=== PATIENT | female | born 1960 | race Caucasian/White ===

== ENCOUNTER 2019-03-21 11:40 | Outpatient (CLI) | payer OTHER, SELFPAY ==
[2019-03-21 13:25] LABS: Calculated LDL 162 mg/dL; Cholesterol 260 mg/dL (50-200); Glucose 97 mg/dL (70-100); HDL Cholesterol 90 mg/dL (40-60); Triglyceride 41 mg/dL (30-150)
[2019-03-22 11:21] LABS: Lyme Ab w Rflx to Lyme Confirm Negative
== END 2019-03-21 12:00 ==
PROVIDERS: PCP Family Medicine; Visit Provider Family Medicine
DX: W57.XXXA Bitten or stung by nonvenomous insect and other nonvenomous arthropods, initial encounter (principal); Z13.220 Encounter for screening for lipoid disorders; Z13.1 Encounter for screening for diabetes mellitus; T14.8XXA Other injury of unspecified body region, initial encounter
CPT/HCPCS: 36415; 80061; 82947; 83721; 86618

== ENCOUNTER 2019-03-21 14:08 | Outpatient (REF) | payer OTHER, SELFPAY ==
--- NOTE | 2019-03-23 11:30 | PAPFT_PTH ---
PATIENT: Lea Sarah LOC: [facility] U#:[id number] AGE/SX: 58/F ROOM: RE03/21/[address]: Kaur Macias MD : [id number] BED: DIS: 03/21/2019 SPEC #: [id number] RECD: 03/26/19 12:54 STATUS: MARIIA REKali #: [id number] BERE: 03/23/19 11:[address]: Kaur Macias DEPT: [facility] Cytology RECD BY: Adrianna Javier Tissues: 1 - CX/ENDOCX FOR PAP SMEARS Procedures: PAP THIN PREP/UVM Screening HPV DNA PROBE Comments: [id number]
== END 2019-03-21 14:28 ==
LOC: LBN 14:08
PROVIDERS: PCP Family Medicine; Visit Provider Family Medicine
DX: Z12.4 Encounter for screening for malignant neoplasm of cervix (principal); Z11.51 Encounter for screening for human papillomavirus (HPV)
CPT/HCPCS: 88142; 87624

== ENCOUNTER 2019-04-11 10:22 | Outpatient (CLI) | payer OTHER, SELFPAY ==
--- NOTE | 2019-04-11 10:52 | DI.MAMMO_ITS ---
SYMPTOMS/DIAGNOSIS: SCREENING MAMMOGRAMS: Mammograms were interpreted according to the usual protocol including computer analysis with CAD system, tomosynthesis and C view imaging. Comparison is made with prior examinations. No suspicious masses or microcalcifications are seen. There is no definite evidence of malignancy. IMPRESSION: Negative mammogram. Routine screening is recommended. Category 1, breast density C. MQSA ASSESSMENT OF FINDINGS: Negative. Category 1. Patient will receive a letter notifying them of these results. Bi-RADS category C. The breasts are heterogeneously dense, which may obscure small masses.
== END 2019-04-11 10:42 ==
PROVIDERS: PCP Family Medicine; Visit Provider Family Medicine
DX: Z12.31 Encounter for screening mammogram for malignant neoplasm of breast (principal)
CPT/HCPCS: 77063; 77067

== ENCOUNTER 2020-04-09 04:08 | Outpatient (CLI) | payer BC, SELFPAY ==
[2020-04-09 12:40] LABS: Calculated LDL 161 mg/dL (<100); Cholesterol 245 mg/dL (<200); HDL Cholesterol 78 mg/dL (40-60); Triglyceride 34 mg/dL (<150)
[2020-04-09 13:11] LABS: Vitamin D 25 Total 38.3 ng/ml (30-100)
== END 2020-04-09 04:28 ==
PROVIDERS: PCP Family Medicine; Visit Provider Family Medicine
DX: E78.5 Hyperlipidemia, unspecified (principal); E55.9 Vitamin D deficiency, unspecified; Z00.00 Encounter for general adult medical examination without abnormal findings
CPT/HCPCS: 36415; 80061; 82306

== ENCOUNTER 2020-04-30 02:07 | Outpatient (CLI) | payer BC, SELFPAY ==
--- NOTE | 2020-04-30 07:15 | DI.MAMMO_ITS ---
EXAM: MG MAMMO SCREENING CLINICAL HISTORY: screening,Z12.39 TECHNIQUE: Bilateral full field digital CC and MLO mammographic images were obtained with 3D tomosyn thesis and utilizing computer aided detection (CAD). COMPARISON: Available for comparison. FINDINGS: Masses/Architectural Distortion: None seen. Microcalcifications: No suspicious pleomorphic-type are seen. Skin Thickening/Nipple Retraction: None. IMPRESSION: 1. No significant interval change with no specific features of malignancy noted. 2. Unless there is more urgent need, screening mammography is recommended, as per [place] [employer] guidelines. BI-RADS Category 1 - Negative Breast Density - Category C - Heterogeneously dense The mammogram demonstrates the patient's breast tissue is dense. Dense breast tissue is very common a nd is not abnormal but dense breast tissue can make it harder to find cancer on a mammogram. Also, de nse breast tissue may increase their breast cancer risk. This information about the result of the [facility] mogram report was provided to the patient to raise their awareness. Use this report when you speak wi th the patient about their risks for breast cancer, which includes their family history. At that time , you may recommend for more screening tests (Ultrasound or MRI) as they might be useful based on the ir risk. A negative radiographic report should not delay biopsy if a dominant or clinically suspicious mass is present. Up to ten percent of cancers are not identified on mammography. A negative report may reinforce clinical impression. Adenosis and dense breasts may obscure an underlying neoplasm. False positive reports average 6 to 10%. Patient will receive a letter notifying them of these results.
== END 2020-04-30 02:27 ==
PROVIDERS: PCP Family Medicine; Visit Provider Family Medicine
DX: Z12.31 Encounter for screening mammogram for malignant neoplasm of breast (principal); R92.2 Inconclusive mammogram
CPT/HCPCS: 77063; 77067

== ENCOUNTER 2021-04-29 03:28 | Outpatient (CLI) | payer OTHER, SELFPAY ==
[2021-04-29 09:27] LABS: Anion Gap 7.1 mmol/L (3-11); BUN 20 mg/dL (7-18); CO2 25.9 mmol/L (21.0-32.0); CREATININE 0.9 mg/dL (0.55-1.02); Calcium 9.6 mg/dL (8.5-10.1); Calculated LDL 175 mg/dL (<100); Chloride 105 mmol/L (98-107); Cholesterol 269 mg/dL (<200); Glucose 87 mg/dL (74-106); HDL Cholesterol 85 mg/dL (40-60); Potassium 4.4 mmol/L (3.5-5.1); Sodium 138 mmol/L (136-145); Triglyceride 46 mg/dL (<150)
== END 2021-04-29 03:29 | disposition home or self-care (01) ==
LOC: LBO 03:29
PROVIDERS: PCP Family Medicine; Visit Provider Family Medicine
DX: E78.5 Hyperlipidemia, unspecified (principal)
CPT/HCPCS: 36415; 80048; 80061

== ENCOUNTER 2021-05-06 01:19 | Outpatient (CLI) | payer OTHER, SELFPAY ==
--- NOTE | 2021-05-06 07:15 | DI.MAMMO_ITS ---
Exam(s) MAMMO SCREENING EXAM: MAMMO SCREENING CLINICAL HISTORY: screening,Z12.39. TECHNIQUE: Bilateral full field digital CC and MLO mammographic images were obtained with 3D tomosyn thesis and utilizing computer aided detection (CAD). COMPARISON: Prior mammograms dating back to 2010, the most recent being April 2020. FINDINGS: The fibroglandular tissue pattern is moderately dense, this decreasing the sensitivity of the mammogr am for finding hidden underlying lesions. There are no new spiculated masses nor malignant appearing microcalcification groups. There is no significant architectural distortion nor skin thickening-retraction. IMPRESSION: Dense bilateral fibroglandular tissue. No obvious radiographic evidence of malignancy. No significa nt change compared to prior studies BI-RADS Category 2 - Benign Findings Breast Density - Category C - Heterogeneously dense Breast density Category C or D implies that the patient has dense breast tissue. Dense breast tissue can make it harder to find cancer on a mammogram. Dense breast tissue is also associated with an incr eased risk of breast cancer. This information about the result of the mammogram report was provided to the patient to raise their awareness. Use this report when you speak with the patient about their risks for breast cancer, which includes their family history. At that time, you may recommend additional screening tests (Ultrasoun d or MRI) as these tests may add significant information. A negative radiographic report should not delay biopsy if a dominant or clinically suspicious mass is present. Up to ten percent of cancers are not identified on mammography. A negative report may reinforce clinical impression. Adenosis and dense breasts may obscure an underlying neoplasm. False positive reports average 6 to 10%. Patient will receive a letter notifying them of these results.
--- NOTE | 2021-05-06 10:59 | DI.US_ITS ---
APPROVED REPORT EXAM: Comprehensive 2D, Doppler, and color-flow Echocardiogram Patient Location: Out-Patient Golf Cart Assembler: Margarita Kearney RDCS (AE) Indications: Systolic Murmur Other Information Study Quality: Good Conclusion Left Ventricle : The left ventricle is normal size. The left ventricular systolic function is normal. The left ventricular ejection fraction is within the normal range. There is normal left ventricular wall thickness. There is normal LV segmental wall motion. The left ventricular diastolic function is normal. LVEF is 59%. Right Ventricle : The right ventricle is normal size. The right ventricular systolic function is norm al. The RVSP is 18.0 mmHg. Atria : The left atrium size is normal. The right atrium size is normal. Mitral Valve : The mitral valve is normal in structure. Mild mitral regurgitation. No evidence of dali ral valve stenosis. Great Vessels : The aortic root is normal in size. The ascending aorta is normal in size. Aortic arch is normal in caliber. IVC is normal in size and collapses >50% with inspiration. Please see remainder of study for further details. Wall motion Left Ventricle The left ventricle is normal size. The left ventricular systolic function is normal. The left ventric ular ejection fraction is within the normal range. There is normal left ventricular wall thickness. T here is normal LV segmental wall motion. The left ventricular diastolic function is normal. There is no ventricular septal defect visualized. LVEF is 59%. Right Ventricle The right ventricle is normal size. The right ventricular systolic function is normal. The RVSP is 18 .0 mmHg. Atria The left atrium size is normal. The right atrium size is normal. The interatrial septum is intact wit h no evidence for an atrial septal defect. Aortic Valve The aortic valve is normal in structure. Aortic valve is trileaflet. There is no aortic valvular sten osis. Trace aortic regurgitation. Mitral Valve The mitral valve is normal in structure. No evidence of mitral valve stenosis. Mild mitral regurgitat ion. Tricuspid Valve The tricuspid valve is normal in structure. There is no tricuspid valve stenosis. Trace tricuspid reg urgitation. Pulmonic Valve The pulmonary valve is normal in structure. There is no pulmonic valvular stenosis. There is no pulmo radha valvular regurgitation. Great Vessels The aortic root is normal in size. The ascending aorta is normal in size. Aortic arch is normal in ca liber. IVC is normal in size and collapses >50% with inspiration. Pericardium There is no pericardial effusion. 2D Dimensions IVSD d PLAX 0.88 cm F: 0.6-1.0 LV Vol A2C d MOD 88.8 mL LVPW d PLAX 0.87 cm F: 0.6 - 1.0 LV Vol A4C d MOD 93.6 mL LVID d PLAX 4.51 cm F: 3.8 - 5.2 LA vol/ BSA A2C s A-L 29.8 mL/m2 LVDs 3.10 cm F: 2.2 - 3.5 LA vol/ BSA A4C s A-L 17.8 mL/m2 Ao Root d 2.42 cm F: 2.7 - 3.3 LA Vol/ BSA Biplane s A-L 25.3 mL/m2 RA Area A4C 10.93 cm2 LA Area A4C s MOD 11.96 cm2 RA Vol/ BSA A4C s A-L 12.9 mL/m2 LA Area A2C s MOD 17.06 cm2 Ao Asc Diam d 2.90 cm F: 2.3 - 3.1 LV EF A4C MOD 58.6 % LV EF Teichholz 57.9 % LV EF A2C MOD 59.0 % LVEF (Kaufman's) 58.73 % F: 54 - 74 LV EF Biplane MOD 58.7 % LV Volume 72.58 mL F: 46 - 106 SV 53.83 mL LV Volume Index 42.44 mL/m2 F: 29 - 61 SV Index 31.42 mL/m2 LV Vol Biplane MOD 91.7 mL FS 30.40 % M-Mode TAPSE 2.52 cm (M/F) >1.7 LV Diastology MV E' medial 0.100 (>0.07 m/s) E/A Ratio 0.9 LV E/e MED 8.00 (<14) MV E Vmax 0.80 (0.4-1.3 m/s) MV E' lateral 0.117 (>0.1 m/s) MV A Vmax 0.90 (0.4-1.3 m/s) LV E/e LAT 6.80 (<14) MV E/A Ratio 0.85 MV E/E' medial 8.01 MV E/E' lateral 6.85 Aortic Valve LVOT Area 3.20 cm2 AoV Area Vmax 3.07 cm2 LVOT Vmax 0.89 m/s AoV Area/ BSA (Vmax) 1.79 cm2/m2 LVOT Mean Obey. 0.61 m/s [place] Mean Obey. 2.91 cm2 LVOT Peak Grad 3.2 mmHg [place] Mean Obey. Index 1.70 cm2/m2 LVOT Mean Grad 1.7 mmHg AR DT 2928 msec LVOT VTI 0.205 m AR PHT 849 msec LVOT Diam s 2.00 cm AoV Vmax 0.93 m/s Velocity Ratio 0.95 AoV Mean Obey. 0.67 m/s AoV Peak Grad 3.5 mmHg LVOT SV 65.69 mL AoV Mean Grad 2.0 mmHg AoV VTI 0.231 m AoV Area VTI 2.84 cm2 AoV Area/ BSA (VTI) 1.66 cm/m2 Mitral Valve MV DT 272 (160-240 msec) MV PHT 79 msec MV Area PHT 2.79 cm2 MV VTI 0.371 m MV Area VTI 1.77 (4.0-6.0 cm2) Pulmonary Valve PV Vmax 0.73 (0.5-1.5 m/s) RVOT Peak Gr. 1.44 mmHg PV Peak Grad 2.2 mmHg RVOT Mean Gr. 0.75 mmHg PV Mean Grad 1.3 mmHg RVOT VTI 0.130 m PV VTI 0.189 m RVOT Vmax 0.60 m/s Tricuspid Valve TR Peak Grad 14.9 mmHg TR Vmax 1.94 m/s RA Pressure 3.00 mmHg RVSP (TR) 18.0 mmHg
== END 2021-05-06 01:39 ==
PROVIDERS: PCP Family Medicine; Visit Provider Family Medicine
DX: Z12.31 Encounter for screening mammogram for malignant neoplasm of breast (principal); R01.1 Cardiac murmur, unspecified; I34.0 Nonrheumatic mitral (valve) insufficiency; R92.2 Inconclusive mammogram
CPT/HCPCS: 77063; 77067; 93306

== ENCOUNTER → 2022-05-25 01:29 | Outpatient (CLI) | payer OTHER, SELFPAY ==
--- NOTE | 2022-05-25 07:00 | DI.MAMMO_ITS ---
Exam(s) MAMMO SCREENING EXAM: MAMMO SCREENING CLINICAL HISTORY: screening,Z12.39 TECHNIQUE: Bilateral full field digital CC and MLO mammographic images were obtained with 3D tomosyn thesis and utilizing computer aided detection (CAD). COMPARISON: Available for comparison. FINDINGS: Masses/Architectural Distortion: None seen. Microcalcifications: No suspicious pleomorphic-type are seen. Skin Thickening/Nipple Retraction: None. IMPRESSION: 1. No significant interval change with no specific features of malignancy noted. 2. Unless there is more urgent need, screening mammography is recommended, as per [place] [employer] guidelines. BI-RADS Category 1 - Negative Breast Density - Category C - Heterogeneously dense Breast density category C or D implies that the patient has dense breast tissue. Dense breast tissue is very common and is not abnormal but dense breast tissue can make it harder to find cancer on a ma mmogram. Also, dense breast tissue may increase their breast cancer risk. This information about the result of the mammogram report was provided to the patient to raise their awareness. Use this report when you speak with the patient about their risks for breast cancer, which includes their family hist ory. At that time, you may recommend for more screening tests (Ultrasound or MRI) as they might be us eful based on their risk. A negative radiographic report should not delay biopsy if a dominant or clinically suspicious mass is present. Up to ten percent of cancers are not identified on mammography. A negative report may reinforce clinical impression. Adenosis and dense breasts may obscure an underlying neoplasm. False positive reports average 6 to 10%. Patient will receive a letter notifying them of these results.
== END ==
PROVIDERS: PCP Family Medicine; Visit Provider Family Medicine
DX: Z12.31 Encounter for screening mammogram for malignant neoplasm of breast (principal); R92.8 Other abnormal and inconclusive findings on diagnostic imaging of breast
CPT/HCPCS: 77063; 77067

== ENCOUNTER → 2022-07-09 00:21 | Outpatient (CLI) | payer OTHER, SELFPAY ==
--- NOTE | 2022-07-09 07:00 | DI.DEXA_ITS ---
Exam(s) XR DEXA BONE DENSITY W/WO LOGAN EXAM: XR DEXA BONE DENSITY W/WO LOGAN CLINICAL HISTORY: screening for osteoporosis in postmenopausal woman,z78.0 TECHNIQUE: [employer] C densitometer analysis of left hip, lumbar spine and left forearm. COMPARISON: No exams were available for comparison FINDINGS: Lateral view of the thoracic and lumbar spine shows no evidence of compression fractures. Bone mineral density measurements of the lumbar spine correspond to a total T-score of -0.2, in the normal range. Bone mineral density measurements of the left hip correspond to a total T-score of -0.2, in the norm al range.. The femoral neck T-score is -0.2. The left forearm bone mineral density measurements correspond to a T-score of the distal 3rd of -0.4 . IMPRESSION: Normal bone mineral density.
== END ==
PROVIDERS: PCP Family Medicine; Visit Provider Family Medicine
DX: Z13.820 Encounter for screening for osteoporosis (principal); Z78.0 Asymptomatic menopausal state
CPT/HCPCS: 77080

== ENCOUNTER 2023-05-12 11:01 | Outpatient (REF) | payer OTHER, SELFPAY ==
[2023-05-12 15:49] LABS: HCT 41.6 % (36.0-46.0); HGB 13.6 g/dL (11.2-15.7); MCH 28.4 pg (27.0-33.0); MCHC 32.7 % (32.0-36.0); MCV 87 fL (80-95); MPV 10.8 fL (8.0-11.0); Platelet Count 270 10^3/uL (130-400); RBC 4.79 10^6/uL (3.93-5.22); RDW 12.3 % (11.7-14.6); RDW-SD 39.5 fL; WBC 3.89 10^3/uL (4.4-10.8)
[2023-05-12 16:51] LABS: ALT 24 U/L (14-59); AST 14 U/L (15-37); Albumin 4.1 g/dL (3.4-5.0); Alkaline Phosphatase 69 U/L (46-116); Anion Gap 6.6 mmol/L (3-11); BUN 16 mg/dL (7-18); Bilirubin, Total 0.4 mg/dL (0.2-1.0); CO2 28.4 mmol/L (21.0-32.0); CREATININE 0.8 mg/dL (0.55-1.02); Calcium 9.1 mg/dL (8.5-10.1); Calculated LDL 216 mg/dL (<100); Chloride 103 mmol/L (98-107); Cholesterol 307 mg/dL (<200); Estimated GFR 82.74 (mL/min/1.73m2); Glucose 108 mg/dL (74-106); HDL Cholesterol 85 mg/dL (40-60); Potassium 4.3 mmol/L (3.5-5.1); Sodium 138 mmol/L (136-145); TSH 2.63 uIU/mL (0.36-3.74); Total Protein 7.8 g/dL (6.4-8.2); Triglyceride 33 mg/dL (<150)
== END 2023-05-12 11:02 | disposition home or self-care (01) ==
LOC: NCHCN 11:01
PROVIDERS: Visit Provider Family Medicine
DX: Z00.00 Encounter for general adult medical examination without abnormal findings (principal); Z13.29 Encounter for screening for other suspected endocrine disorder; Z13.0 Encounter for screening for diseases of the blood and blood-forming organs and certain disorders involving the immune mechanism; E78.5 Hyperlipidemia, unspecified
CPT/HCPCS: 80053; 80061; 85027; 84443

== ENCOUNTER → 2023-05-30 01:13 | Outpatient (CLI) | payer OTHER, SELFPAY ==
--- NOTE | 2023-05-30 | DI.MAMMO_ITS ---
Exam(s) MAMMO SCREENING EXAM: MAMMO SCREENING CLINICAL HISTORY: [facility],Z00.00, SCREENING, Z12.31. TECHNIQUE: Bilateral full field digital CC and MLO mammographic images were obtained with 3D tomosyn thesis and utilizing computer aided detection (CAD). COMPARISON: Prior mammograms were reviewed. FINDINGS: There has been no significant change in the appearance and distribution of the fibroglandular tissue. There are no CAD designations There are no new spiculated masses nor malignant appearing microcalcification groups. There is no significant architectural distortion nor skin thickening-retraction. IMPRESSION: No radiographic evidence of malignancy. BI-RADS Category 1 - Negative Breast Density - Category C - Heterogeneously dense Breast density Category C or D implies that the patient has dense breast tissue. Dense breast tissue can make it harder to find cancer on a mammogram. Dense breast tissue is also associated with an incr eased risk of breast cancer. This information about the result of the mammogram report was provided to the patient to raise their awareness. Use this report when you speak with the patient about their risks for breast cancer, which includes their family history. At that time, you may recommend additional screening tests (Ultrasoun d or MRI) as these tests may add significant information. A negative radiographic report should not delay biopsy if a dominant or clinically suspicious mass is present. Up to ten percent of cancers are not identified on mammography. A negative report may reinforce clinical impression. Adenosis and dense breasts may obscure an underlying neoplasm. False positive reports average 6 to 10%. Patient will receive a letter notifying them of these results.
== END ==
PROVIDERS: PCP Family Medicine; Visit Provider Family Medicine
DX: Z12.31 Encounter for screening mammogram for malignant neoplasm of breast (principal)
CPT/HCPCS: 77063; 77067

== ENCOUNTER → 2023-06-13 01:37 | Outpatient (CLI) | payer OTHER, SELFPAY ==
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
--- NOTE | 2023-06-13 09:43 | DI.RAD_ITS ---
Exam(s) RF MODIFIED SPEECH BA SWALLOW TECHNIQUE: Modified barium swallow was performed in conjunction with speech pathology. CONTRAST MATERIAL: Oral barium Oral water soluble contrast was administered. COMPARISON: No exams were available for comparison FINDINGS: Fluoroscopy provided during swallowing mechanism study performed by the speech therapist. This is a patient had recent anterior fusion plate placed at C6-7. See procedure report for details. There was no aspiration evident on this study. IMPRESSION: No evidence of aspiration or penetration. RADIATION DOSE DELIVERED: trina Bazzi=18.0 mGy
[2023-06-13] MEDS: Barium Sulfate Oral Paste 40% W/V 230 ML TUBE 13 ML PO (10:26)
[2023-06-13] MEDS: Barium Sulfate 40% W/V 240 ML BTL 70 ML PO (10:27)
[2023-06-13] MEDS: Barium Sulfate 700 MG TAB PO (10:28)
[2023-06-13] MEDS: Barium Sulfate 81% w/w for Oral Suspension 148 GM BTL 90 GM PO (10:31)
== END ==
PROVIDERS: PCP Family Medicine; Visit Provider Orthopaedic Surgery Orthopaedic Surgery of the Spine
DX: M54.2 Cervicalgia (principal); R13.10 Dysphagia, unspecified
CPT/HCPCS: 92611; 74221

== ENCOUNTER 2023-10-25 11:09 | Outpatient (REF) | payer OTHER, SELFPAY ==
--- NOTE | 2023-10-25 11:10 | SKI_PTH ---
PATIENT: Lea Sarah [id number] AGE/SX: 63/F ROOM: RE10/25/[address]: TRACEY: 1960 BED: DIS: 10/25/2023 SPEC #: [id number] RECD: 10/26/23 12:51 STATUS: MARIIA ASHLEY #: [id number] BERE: 10/25/23 11:[address]: Libertad Gasca DEPT: Surgical Specimen RECD BY: Adrianna Javier Tissues: 1 - SKIN BIOPSY(SHAVE/PUNCH) 2 - SKIN BIOPSY(SHAVE/PUNCH) 3 - SKIN BIOPSY(SHAVE/PUNCH) 4 - SKIN BIOPSY(SHAVE/PUNCH) Procedures: GROSS AND MICRO LEVEL 3 SKIN LEVEL 4 Comments: [id number]
--- OUTSIDE RECORDS SUMMARY | 2023-10-26 11:13 | XMS_ITS | Continuity of Care Document ---
Author Name Unknown Address [address] [place] [address] Phone Organization [facility] Address [address] [place] [address] Phone Care Team Providers Care Cocktail Lounge Manager Name Role Phone Out of Town, Provider Primary Care Provider UnaJoel Esteves Attending Provider [phone] Allergies, Adverse Reactions, Alerts No allergy information available. Medications No medication information available. Problems No problem information available. Relevant Diagnostic Tests and/or Laboratory Data Laboratory Results Test Date/Time Result Interpretation Reference Range Result Comment Performing Site Coronavirus 2019 PCR Interp March 11, 2020 7:15am Negative Negative Negative results do not preclude 2019-nCoV infection andshould not be used as the sole basis for treatment or otherpatient management decisions. Negative results must becombined with clinical observations, patient history, andepidemiolo gical information.T his test was developed and its performance characteristi csdetermined by [facility]. It has not been cleared or approved bythe US Food and Drug Administratio n. FDA does not requirethis test to go through premarket FDA review. This test isused for clinical purposes. It should not be regarded asinvestigati onal or for research. This laboratory iscertified under the Clinical Laboratory ImprovementAm endments (CLIA) as qualified to perform high complexitycli nical laboratory testing.This test is based on the CDC COVID-19 Emergency UseAuthorizat ion (EUA) assay, with minor modification asdefined by the FDAPerformed on the [employer] 7500 Fast. [facility] Coronavirus (COVID-19)( PCR) April 08, 2020 8:00am Negative Negative 2019-novel Coronavirus (2019-nCoV) not detected by theqRT-PCR assay. Consider testing for other respiratoryvi ruses or re-collecting for 2019-nCoV testing. Note:Optimum timing for peak viral levels during infectionscau sed by 2019-nCoV have not been determined. Collection ofmultiple specimens from the same patient may be necessaryto detect the virus.Limitat ionsPositive results are indicative of active infection withSARS-CoV- 2 but do not rule out bacterial infection orco-infectio n with other viruses. The agent detected may notbe the definite cause of disease. In addition, detection ofviral RNA may not indicate the presence of infectious virusor that SARS-CoV-2 is the causative agent for clinicalsympt oms.Negative results do not preclude SARS-CoV-2 infection andshould not be used as the sole basis for patient managementdec isions. Negative results must be combined with clinicalobser vations, patient history, and epidemiologic alinformation . False negative results may also occur ifamplificati on inhibitors are present in the specimen or ifinadequate numbers of organisms are present in thespecimen. Optimum specimen types and timing for peak virallevels during infections caused by SARS-CoV-2 have not beenfully determined. Collection of multiple specimens (typesand time points) from the same patient may be necessary todetect the virus.The test was validated for use with upper respiratorysp ecimens obtained via nasopharyngea l or oropharyngeal swabs in VTM, UTM, M4, M5, M6, saline, and MTM media. Theperformanc e of this test has not been established for otherspecimen s. Specimens collected using other FDA recommendedSp ecimen Collection Materials listed in the FDA COVID-19Diagn [employer] communication (December 13, 2019) areprocessed with the caveat that they were not all validatedfor use with this test and the result must be interpretedin this context. Furthermore, a false negative results mayoccur if a specimen is improperly collected, transported orhandled.If the virus mutates in the RT-PCR target region,SARS-C oV-2 may not be detected or may be detected lesspredictab ly.Inhibitors or other types of interference may produce afalse negative result. An interference study evaluating theeffect of common cold medications was not performed.Thi s test is not FDA-cleared but its performancech aracteristics were established by our CLIA-keron evangelista CAP-yahaira hendrix, high complexity laboratory in accordancewit CLIA regulations, College of [employer]( CAP) guidelines (Dec 06, 2019), and FDA guidance (2019).This test is only for use under the Food and DrugAdministr [facility] Emergency Use Authorization . [facility] Coronavirus (COVID-19)( PCR) July 15, 2020 8:00am Negative [facility] Coronavirus (COVID-19)( PCR) June 12, 2020 8:00am Negative Negative 2019-novel Coronavirus (2019-nCoV) not detected by theqRT-PCR assay. Consider testing for other respiratoryvi ruses or re-collecting for 2019-nCoV testing. Note:Optimum timing for peak viral levels during infectionscau sed by 2019-nCoV have not been determined. Collection ofmultiple specimens from the same patient may be necessaryto detect the virus.Limitat ionsPositive results are indicative of active infection withSARS-CoV- 2 but do not rule out bacterial infection orco-infectio n with other viruses. The agent detected may notbe the definite cause of disease. In addition, detection ofviral RNA may not indicate the presence of infectious virusor that SARS-CoV-2 is the causative agent for clinicalsympt oms.Negative results do not preclude SARS-CoV-2 infection andshould not be used as the sole basis for patient managementdec isions. Negative results must be combined with clinicalobser vations, patient history, and epidemiologic alinformation . False negative results may also occur ifamplificati on inhibitors are present in the specimen or ifinadequate numbers of organisms are present in thespecimen. Optimum specimen types and timing for peak virallevels during infections caused by SARS-CoV-2 have not beenfully determined. Collection of multiple specimens (typesand time points) from the same patient may be necessary todetect the virus.The test was validated for use with upper respiratorysp ecimens obtained via nasopharyngea l or oropharyngeal swabs in VTM, UTM, M4, M5, M6, saline, and MTM media. Theperformanc e of this test has not been established for otherspecimen s. Specimens collected using other FDA recommendedSp ecimen Collection Materials listed in the FDA COVID-19Diagn [employer] communication (December 13, 2019) areprocessed with the caveat that they were not all validatedfor use with this test and the result must be interpretedin this context. Furthermore, a false negative results mayoccur if a specimen is improperly collected, transported orhandled.If the virus mutates in the RT-PCR target region,SARS-C oV-2 may not be detected or may be detected lesspredictab ly.Inhibitors or other types of interference may produce afalse negative result. An interference study evaluating theeffect of common cold medications was not performed.Thi s test is not FDA-cleared but its performancech aracteristics were established by our CLIA-certifie jean carlos,CAP-accredi simeon, high complexity laboratory in accordancewit h CLIA regulations, College of [employer]( CAP) guidelines (Dec 06, 2019), and FDA guidance (2019).This test is only for use under the Food and DrugAdministr [facility] Emergency Use Authorization . [facility] Coronavirus (COVID-19)( PCR) May 13, 2020 8:00am Negative Negative 2019-novel Coronavirus (2019-nCoV) not detected by theqRT-PCR assay. Consider testing for other respiratoryvi ruses or re-collecting for 2019-nCoV testing. Note:Optimum timing for peak viral levels during infectionscau sed by 2019-nCoV have not been determined. Collection ofmultiple specimens from the same patient may be necessaryto detect the virus.Limitat ionsPositive results are indicative of active infection withSARS-CoV- 2 but do not rule out bacterial infection orco-infectio n with other viruses. The agent detected may notbe the definite cause of disease. In addition, detection ofviral RNA may not indicate the presence of infectious virusor that SARS-CoV-2 is the causative agent for clinicalsympt oms.Negative results do not preclude SARS-CoV-2 infection andshould not be used as the sole basis for patient managementdec isions. Negative results must be combined with clinicalobser vations, patient history, and epidemiologic alinformation . False negative results may also occur ifamplificati on inhibitors are present in the specimen or ifinadequate numbers of organisms are present in thespecimen. Optimum specimen types and timing for peak virallevels during infections caused by SARS-CoV-2 have not beenfully determined. Collection of multiple specimens (typesand time points) from the same patient may be necessary todetect the virus.The test was validated for use with upper respiratorysp ecimens obtained via nasopharyngea l or oropharyngeal swabs in VTM, UTM, M4, M5, M6, saline, and MTM media. Theperformanc e of this test has not been established for otherspecimen s. Specimens collected using other FDA recommendedSp ecimen Collection Materials listed in the FDA COVID-19Diagn [employer] communication (December 13, 2019) areprocessed with the caveat that they were not all validatedfor use with this test and the result must be interpretedin this context. Furthermore, a false negative results mayoccur if a specimen is improperly collected, transported orhandled.If the virus mutates in the RT-PCR target region,SARS-C oV-2 may not be detected or may be detected lesspredictab ly.Inhibitors or other types of interference may produce afalse negative result. An interference study evaluating theeffect of common cold medications was not performed.Thi s test is not FDA-cleared but its performancech aracteristics were established by our CLIA-certifie d,CAP-accredi [facility] high complexity laboratory in accordancewit h CLIA regulations, College of [employer] Pathologists( CAP) guidelines (Dec 06, 2019), and FDA guidance (2019).This test is only for use under the Food and DrugAdministr [facility] Emergency Use Authorization . [facility] Reference Lab Test Performing Site April 08, 2020 8:00am [facility] [place] Please indicate the Triage [id number] Source: NPTest performed or referred by[address] LABORATORIES Reference Lab Test Performing Site March 11, 2020 7:15am [address] lab Is Patient Admitted or Awaiting Admission?:NO COVID Source: NPTest performed or referred by[address] [employer] Reference Lab Test Performing Site July 15, 2020 8:00am [facility] Reference Lab Test Performing Site June 12, 2020 8:00am [facility] COVID Source: NPPlease indicate the Triage TierTier 2Test performed or referred by[id number] [place] [address] Reference Lab Test Performing Site May 13, 2020 8:00am [facility] COVID Source: NPPlease indicate the Triage [id number] performed or referred by[address] SARS Source August 02, 2020 11:00am Nasopharynx [facility] Patient Race (MISC) August 02, 2020 11:00am Unknown [facility] Patient Ethnicity ([facility] panel) August 02, 2020 11:00am Unknown [facility] SARS Virus RNA (PCR) August 02, 2020 11:00am Undetected Undetected SARS-CoV-2 RNA absent. This result does not rule outCOVID-19 in the patient, as the sensitivity of the testdepends on the timing of the specimen collection and thequality of the specimen. Result should be correlated withpatient's history and clinical presentation. [facility] SARS-CoV-2 Comment August 02, 2020 11:00am See comment PKELM- This test uses the Snootlab New CoronavirusNu cleic Acid Detection Kit (Sn[employer], Inc.), and isperformed on the Estech instrument and [employer] 7500 Fast Real-Time PCR System. It has receivedEmerg ency Use Authorization (EUA) by the U.S. Food and DrugAdministr ation, and is modified from the gasket maker' sinstructions with a bridging study. Performancech aracteristics were verified by [facility] in a mannerconsist ent with CLIA requirements. Fact sheets for this Emergency Use Authorization (EUA) canbe found at the following links:https:/ /www.fda.gov/ media/958100/ download for HealthcarePro vidershttps:/ /www.fda.gov/ media/834945/ download for PatientsTest Performed by:[address] [id number] Director: Marco Enciso M.D. Ph.D.; IA# [id number] [facility] Advance Directives Advance Directive Response Recorded Date/ Time Does patient have an Advanced Directive? No March 07, 2020 3:24pm Do we have a copy on file here at [facility]? No March 07, 2020 3:24pm Pt has a Living Will? No March 07, 2020 3:24pm Do we have a copy on file here at [facility]? No March 07, 2020 3:24pm Pt has a Power of Fire Prevention Research Engineer? No March 07, 2020 3:24pm Do we have a copy on file here at [facility]? No March 07, 2020 3:24pm Chief Complaint and Reason for Visit Chief Complaint COVID SWAB COVID SWAB COVID SWAB COVID SWAB COVID SWAB CURBSIDE CURBSIDE Encounters Encounter Location(s) Arrival/Admit Date Discharge/Depart Date Provider(s) Departed [facility] March 11, 2020 7:10am March 11, 2020 7:11am [facility], 2020 7:15am April 08, 2020 7:20am [facility] May 13, 2020 7:50am May 13, 2020 7:51am Joel Cantu DMD [facility] June 12, 2020 6:53am June 12, 2020 6:54am [facility] July 15, 2020 6:49am July 15, 2020 6:50am [facility], 2020 8:33am August 02, 2020 8:34am [facility], 2020 10:43am August 26, 2020 10:44am Joel Cantu DMD Assessments No Assessments Information Available Functional Status No Functional Status information available Goals Goals may be documented in an alternate section. Mental Status No Mental Status Information Available Medical Equipment No Medical Equipment Information available Insurance Providers Guarantor KINGSLEY MEL Address [address] [address] Contact Info. Home Phone: Payer Policy Id Coverage Id Subscriber's Name Subscriber Id Effective Date Expiration Date [employer] [facility] [id number] AVERY MARIANO [id number] [employer] [id number] TESFAYE LEAL [id number] SELF PAY Self N/A Social History Assigned Sex Female
--- OUTSIDE RECORDS SUMMARY | 2023-10-26 11:13 | XMS_ITS | Continuity of Care Document ---
Author Name Unknown Address [address] [place] [address] [facility] Address [address] [place] [address] Phone Care Team Providers Care Medical Professionals Name Role Phone Out of Town, Provider Primary Care Provider UnaJoel Esetves Attending Provider [phone] Allergies, Adverse Reactions, Alerts No allergy information available. Medications No medication information available. Problems No problem information available. Relevant Diagnostic Tests and/or Laboratory Data Laboratory Results Test Date/Time Result Interpretation Reference Range Result Comment Performing Site Coronavirus 2019 PCR Interp March 11, 2020 8:15am Negative Negative Negative results do not preclude 2019-nCoV infection andshould not be used as the sole basis for treatment or otherpatient management decisions. Negative results must becombined with clinical observations, patient history, andepidemiologi tracy information.Thi s test was developed and its performance characteristics determined by [facility]. It has not been cleared or approved bythe US Food and Drug Administration. FDA does not requirethis test to go through premarket FDA review. This test isused for clinical purposes. It should not be regarded asinvestigation al or for research. This laboratory iscertified under the Clinical Laboratory ImprovementAmen dments (CLIA) as qualified to perform high complexityclini tracy laboratory testing.This test is based on the CDC COVID-19 Emergency UseAuthorizatio n (EUA) assay, with minor modification asdefined by the FDAPerformed on the [employer] 7500 Fast. [facility] Coronavirus (COVID-19)(P CR) May 13, 2020 9:00am Negative Negative 2019-novel Coronavirus (2019-nCoV) not detected by theqRT-PCR assay. Consider testing for other respiratoryviru ses or re-collecting for 2019-nCoV testing. Note:Optimum timing for peak viral levels during infectionscause d by 2019-nCoV have not been determined. Collection ofmultiple specimens from the same patient may be necessaryto detect the virus.Limitatio nsPositive results are indicative of active infection pvmbIESN-QqD-3 but do not rule out bacterial infection orco-infection with other viruses. The agent detected may notbe the definite cause of disease. In addition, detection ofviral RNA may not indicate the presence of infectious virusor that SARS-CoV-2 is the causative agent for clinicalsymptom s.Negative results do not preclude SARS-CoV-2 infection andshould not be used as the sole basis for patient managementdecis ions. Negative results must be combined with clinicalobserva tions, patient history, and epidemiological information. False negative results may also occur ifamplification inhibitors are present in the specimen or ifinadequate numbers of organisms are present in thespecimen. Optimum specimen types and timing for peak virallevels during infections caused by SARS-CoV-2 have not beenfully determined. Collection of multiple specimens (typesand time points) from the same patient may be necessary todetect the virus.The test was validated for use with upper respiratoryspec imens obtained via nasopharyngeal or oropharyngealsw abs in VTM, UTM, M4, M5, M6, saline, and MTM media. Theperformance of this test has not been established for otherspecimens. Specimens collected using other FDA recommendedSpec imen Collection Materials listed in the FDA COVID-19Diagnos [employer] Technologies communication (December 13, 2019) areprocessed with the caveat that they were not all validatedfor use with this test and the result must be interpretedin this context. Furthermore, a false negative results mayoccur if a specimen is improperly collected, transported orhandled.If the virus mutates in the RT-PCR target region,SARS-CoV -2 may not be detected or may be detected lesspredictably .Inhibitors or other types of interference may produce afalse negative result. An interference study evaluating theeffect of common cold medications was not performed.This test is not FDA-cleared but its performancechar acteristics were established by our CLIA-certified, CAP-accredited, high complexity laboratory in accordancewith CLIA regulations, College of [place] Path[employer](CA P) guidelines (Dec 06, 2019), and FDA guidance (2019).This test is only for use under the Food and DrugAdministrat ion's Emergency Use Authorization. [facility] Reference Lab Test Performing Site March 11, 2020 8:15am [facility] lab Is Patient Admitted or Awaiting Admission?:NOCO VID Source: NPTest performed or referred by[address] Reference Lab Test Performing Site May 13, 2020 9:00am [facility] COVID Source: NPPlease indicate the Triage [id number] performed or referred by[address] Advance Directives Advance Directive Response Recorded Date/ Time Does patient have an Advanced Directive? No March 07, 2020 4:24pm Do we have a copy on file here at [facility]? No March 07, 2020 4:24pm Pt has a Living Will? No March 07, 2020 4:24pm Do we have a copy on file here at [facility]? No March 07, 2020 4:24pm Pt has a Power of Color Specialist? No March 07, 2020 4:24pm Do we have a copy on file here at [facility]? No March 07, 2020 4:24pm Chief Complaint and Reason for Visit Chief Complaint COVID SWAB COVID SWAB COVID SWAB Encounters Encounter Location(s) Arrival/Admit Date Discharge/Depart Date Provider(s) Departed [facility] March 11, 2020 8:10am March 11, 2020 8:11am Joel Cantu DMD Departed [facility] May 13, 2020 8:50am May 13, 2020 8:51am Joel Cantu DMD Departed [facility] June 12, 2020 7:53am June 12, 2020 7:54am Joel Cantu DMD Assessments No Assessments Information Available Functional Status No Functional Status information available Goals Goals may be documented in an alternate section. Mental Status No Mental Status Information Available Medical Equipment No Medical Equipment Information available Insurance Providers Guarantor KINGSLEY LEAL Address [address] [facility] [address] Contact Info. Home Phone: Payer Policy Id Coverage Id Subscriber's Name Subscriber Id Effective Date Expiration Date [facility] [id number] AVERY MARIANO [id number] SELF PAY Self N/A Social History Assigned Sex Female
--- OUTSIDE RECORDS SUMMARY | 2023-10-26 11:13 | XMS_ITS | Continuity of Care Document ---
Author Name [facility] Address [address] [place] [address] Organization [facility] Address [address] [place] [address] Care Team Providers Care Correspondence Renew Clerk Name Role Phone Out of Town, Provider Primary Care Physician Joel Lott Attending Physician Allergies, Adverse Reactions, Alerts No allergy information available. Medications No medication information available. Problem List No problem information available. Procedures No known history of procedures. Relevant Diagnostic Tests and/or Laboratory Data Laboratory Results Test Date/Time Result Interp. Ref. Range Result Co mment Coronavirus 2019 PCR Interp March 11, 2020 8:15am Negative Negative results do not preclude 2019-nCoV infection and should not be used as the sole basis for treatment or other patient management decisions. Negative results must be combined with clinical observations, patient history, and epidemiological information. This test was developed and its performance characteristics determined by [facility]. It has not been cleared or approved by the US Food and Drug Administration. FDA does not require this test to go through premarket FDA review. This test is used for clinical purposes. It should not be regarded as investigational or for research. This laboratory is certified under the Clinical Laboratory Improvement Amendments (CLIA) as qualified to perform high complexity clinical laboratory testing. This test is based on the CDC COVID-19 Emergency Use Authorization (EUA) assay, with minor modification as defined by the FDA Performed on the Applied Socialbomb Fast. Reference Lab Test Performing Site March 11, 2020 8:15am [facility] Is Patient Admitted or Awaiting Admission?:NO COVID Source: HVAC OPERATIONS TECHNICIAN Test performed or referred by The [address] [address] Advance Directives Advance Directive Response Recorded Date/ Time Do we have a copy on file here at [facility]? No March 07, 2020 4:24pm Does patient have an Advanced Directive? No March 07, 2020 4:24pm Pt has a Living Will? No March 07 4:24pm Pt has a Power of Supervisor Pumping? No March 07, 2020 4:24pm Chief Complaint and Reason for Visit Encounter Admit Date Chief Complaint Reason for V isit Departed Clinical March 11, 2020 8:10am [facility] SWAB Hospital Discharge Instructions No known hospital discharge instructions. Encounters Encounter Facility Location Admit/Visit Date Discharge/Departure Date Attending Provider Departed Clinical [facility] Laboratory March 11, 2020 8:10am March 11, 2020 8:11am Joel Cantu Functional Status No known functional status. Immunizations No known immunizations. Payers Payer Name Policy Type Covered Democrat Covered Democrat Id Relationship Subscriber Subscriber Id [facility] OUT OF STATE Commercial AVERY QUINTANA [id number] Spouse AVERY QUINTANA [id number] SELF PAY Personal Plan of Care No Known Plan of Care Information Social History No known social history. Vital Signs No known vital signs results.
--- OUTSIDE RECORDS SUMMARY | 2023-10-26 11:13 | XMS_ITS | Continuity of Care Document ---
Author Name [facility] Address [address] [place] [address] Organization [facility] Address [address] [place] [address] Care Team Providers Care Mortar Worker Name Role Phone Out of Town, Provider [...] developed and its performance characteristics determined by [facility]. It has not been cleared [...] by the FDA Performed on the Applied Zelgor Fast. Reference Lab Test Performing Site March 11, 2020 8:15am [facility] lab Is Patient Admitted or Awaiting Admission?:NO COVID Source: MARKETING AND COMMUNICATIONS OFFICER Test performed or referred by The [address] [address] Advance Directives Advance Directive Response Recorded Date/ Time Do we have a copy on file here at [facility]? No March 07, 2020 4:24pm Does patient have an Advanced Directive? No March 07, 2020 4:24pm Pt has a Living Will? No March 07 4:24pm Pt has a Power of International Nurse? No March 07, 2020 4:24pm Chief Complaint and Reason for Visit Encounter Admit Date Chief Complaint Reason for V isit Departed Clinical May 13, 2020 8:50am COVID SWAB Hospital Discharge Instructions No known hospital discharge instructions. Encounters Encounter Facility Location Admit/Visit Date Discharge/Departure Date Attending Provider Departed Clinical [facility] Laboratory May 13, 2020 8:50am May 13, 2020 8:51am Joel Cantu Departed [facility] March 11, 2020 8:10am March 11, 2020 8:11am Joel Cantu Functional Status No known functional status. Immunizations No known immunizations. Payers Payer Name Policy Type Covered Democrat Covered Democrat Id Relationship Subscriber Subscriber Id [facility] OUT OF STATE Commercial AVERY QUINTANA [id number] Spouse AVERY QUINTANA [id number] SELF PAY Personal Plan of Care No Known Plan of Care Information Social History No known social history. Vital Signs No known vital signs results.
--- OUTSIDE RECORDS SUMMARY | 2023-10-26 11:13 | XMS_ITS | Continuity of Care Document ---
Author Name Unknown Address [address] [place] [address] Phone Organization [facility] Address [address] [place] [address] Phone Care Team Providers Care Non Emergency Services Ambulance Driver Name Role Phone Out of Town, Provider Primary Care Provider Unav Joel Pritchard Attending Provider Allergies, Adverse Reactions, Alerts No known allergies. Medications Medication Status Dose Units Route Directions Qty Days St art Date End Date Instructions COVID-19 vacc,mRNA(P fizer)(PF) 30 mcg/0.3 mL IM susp (EUA) Discontin ued 0.3 ML IM ONCE 0.3 September 10, 2020 6:55am [facility] 2019 7:27am COVID-19 vacc,mRNA(P fizer)(PF) 30 mcg/0.3 mL IM susp (EUA) Discontin ued 0.3 ML IM ONCE 0.3 October 01, 2020 7:00am October 01, 2020 7:04am Problems No problem information available. Relevant Diagnostic [...] developed and its performance characteristi csdetermined by [facility]. It has not been cleared or [...] asdefined by the FDAPerformed on the Applied MyLife 7500 Fast. [facility] Coronavirus 2019 PCR Interp September 23, 2020 9:00am Negative Negative This test has not been FDA cleared or approved. This testhas been authorized by FDA under an EUA for use byauthorized laboratories. This test has been authorized onlyfor detection of nucleic acid from 2019-nCoV, not for anyother viruses or pathogens. This test is only authorizedfor the duration of the declaration that circumstances exist justifying the authorization of emergency use of invitro diagnostic tests for detection and/or diagnosis [id number] under section 564(b)(1) of Act, 21 U.S.C ?360bbb-3(b) (1), unless the authorization is terminated orrevoked sooner.Negati ve results do not preclude 2019-nCoV infection andshould not be used as the sole basis for treatment or otherpatient management decisions. Negative results must becombined with clinical observations, patient history, andepidemiolo gical information.T esting was performed using the prudencio SARS-CoV-2 assay([employer] on the Prudencio 6800 System [facility] Coronavirus 2019 PCR Interp August 26, 2020 8:15am Negative Negative Negative results do not preclude 2019-nCoV infection andshould not be used as the sole basis for treatment or otherpatient management decisions. Negative results must becombined with clinical observations, patient history, andepidemiolo gical information.T his test was developed and its performance characteristi csdetermined by [facility]. It has not been cleared or [...] modification asdefined by the FDAPerformed on the turntable.fmo appiris Flex. [facility] Coronavirus (COVID-19)( PCR) April 08, 2020 8:00am Negative Negative 2018-novel Coronavirus (2019-nCoV) not detected by theqRT-PCR assay. [...] Collection Materials listed in the FDA COVID-19Diagn [employer] communication (December 13, 2019) areprocessed with [...] performancech aracteristics were established by our CLIA-keron evangelistaCAP-accredi simeon, high complexity laboratory in accordancewit h CLIA regulations, College of [place] Pathologists( CAP) guidelines (Dec 06, 2019), and FDA guidance (2019).This test is only for use under the Food and DrugAdministr [facility]'s Emergency Use Authorization . [facility] Coronavirus (COVID-19)( PCR) July 15, 2020 8:00am Negative [facility] Coronavirus (COVID-19)( PCR) June 12, 2020 8:00am [...] Collection Materials listed in the FDA COVID-19Diagn [employer] communication (December 13, 2019) areprocessed with [...] performancech aracteristics were established by our CLIA-keron evangelista,CAP-accredi simeon, high complexity laboratory in accordancewit h CLIA regulations, College of [place] Pathologists( CAP) guidelines (Dec 06, 2019), and FDA guidance (2019).This test is only for use under the Food and DrugAdministr [facility]ec[facility]'s Emergency Use Authorization . [facility] [employer] Coronavirus (COVID-19)( PCR) May 13, 2020 8:00am [...] used as the sole basis for patient managementde isimineral area regional [facility]. Negative results must be combined with clinicalobser [...] in accordancewit h CLIA regulations, College of [employer] Pathologists( CAP) guidelines (Dec 06, 2019), and FDA guidance (2019).This test is only for use under the [facility] and [facility]Admin[facility]'s Emergency Use Authorization . [facility] Reference Lab Test Performing Site April 08, 2020 8:00am The [facility] Please indicate the Triage [id number] Source: NPTest performed or referred by[address] LABORATORIES Reference Lab Test Performing Site March 11, 2020 7:15am [facility] [address] [facility] lab Is Patient Admitted or Awaiting Admission?:NO COVID Source: NPTest performed or referred by[address] LABORATORIES Reference Lab Test Performing Site September 23, 2020 9:00am [facility] lab COVID Source: NASALPlease indicate the Triage [id number] performed or referred by[address] [facility]ORATORIES Reference Lab Test Performing Site August 26, 2020 8:15am [facility] lab COVID Source: NASALPlease indicate the Triage TierTIER 2Test performed or referred by[address] LABORATORIES Reference Lab Test Performing Site July 15, 2020 8:00am [facility] Reference Lab Test Performing Site June 12, 2020 8:00am [facility] COVID Source: NPPlease indicate the Triage TierTier 2Test performed or referred by[address] [facility]ATORIES Reference Lab Test Performing Site May 13, 2020 8:00am The [facility] COVID Source: NPPlease indicate the Triage [id number] performed or referred by[address] [facility]ATOR[facility] SARS Source August 02, 2020 11:00am Nasopharynx [facility] Patient Race (MISC) August 02, 2020 11:00am Unknown [facility] Patient Ethnicity (MISC panel) August 02, 2020 11:00am Unknown [facility] SARS Virus RNA (PCR) August 02, 2020 11:00am Undetected Undetected SARS-CoV-2 RNA absent. This result does not rule outCOVID-19 in the patient, as the sensitivity of the testdepends on the timing of the specimen collection and thequality of the specimen. Result should be correlated withpatient's history and clinical presentation. [facility] SARS-CoV-2 Comment August 02, 2020 11:00am See comment PKELM- This test uses the PerkinElmer New CoronavirusNu cleic Acid Detection Kit ([employer] and isperformed on the Parents Journey 360 instrument and [employer] 7500 Fast Real-Time PCR System. It has receivedEmerg ency Use Authorization (EUA) by the U.S. Food and DrugAdministr ation, and is modified from the golf course designer' sinstructions with a bridging study. Performancech aracteristics were verified by [facility] in a mannerconsist ent with CLIA requirements. Fact sheets for this Emergency Use Authorization (EUA) canbe found at the following links:https:/ /www.fda.gov/ media/605334/ download for HealthcarePro vidershttps:/ /www.fda.gov/ media/954378/ download for PatientsTest Performed by:[address] [address]Ejt Director: Marco Enciso M.D. Ph.D.; CLIA# [id number] [facility] Advance Directives Advance Directive Response Recorded Date/ Time Does patient have an Advanced Directive? No March 07, 2020 3:24pm Do we have a copy on file here at [facility]? No March 07, 2020 3:24pm Pt has a Living Will? No March 07, 2020 3:24pm Do we have a copy on file here at [facility]? No March 07, 2020 3:24pm Pt has a Power of Financial Services Representative? No March 07, 2020 3:24pm Do we have a copy on file here at [facility]? No March 07, 2020 3:24pm Chief Complaint and Reason for Visit Chief Complaint COVID SWAB COVID SWAB COVID SWAB COVID SWAB COVID SWAB CURBSIDE CURBSIDE Covid Vaccine 1st Dose COVID SWAB Covid Vaccine 2nd Dose Encounters Encounter Location(s) Arrival/Admit Date Discharge/Depart Date Provider(s) Departed Clinical [facility] March 11, 2020 7:10am March 11, 2020 7:11am Joel Cantu DMD Departed [facility] April 08, 2020 7:15am April 08, 2020 7:20am Joel Cantu DMD Departed [facility] May 13, 2020 7:50am May 13, 2020 7:51am Joel Cantu DMD Departed [facility] June 12, 2020 6:53am June 12, 2020 6:54am Joel Cantu DMD Departed [facility] July 15, 2020 6:49am July 15, 2020 6:50am Joel Cantu DMD Departed [facility] August 02, 2020 8:33am August 02, 2020 8:34am Joel Cantu DMD Departed [facility] August 26, 2020 10:43am August 26, 2020 10:44am Joel Cantu DMD Departed Physician/Prov ider Office Visit [facility] September 10, 2020 6:55am September 10, 2020 8:13am Ollie Oliver MD Departed [facility] September 23, 2020 8:01am September 23, 2020 8:02am Joel Cantu DMD Departed Physician/Prov ider Office Visit [facility] October 01, 2020 6:57am October 01, 2020 7:18am Ollie Oliver MD Assessments No Assessments Information Available Functional Status No Functional Status information available Goals Goals may be documented in an alternate section. Immunizations Immunization Event Date Not Given Reason Dose Number Assembly Line Upholsterer Lot Number Vaccine Information Statement (VIS) Detail Covid-19 30mcg/0.3ml Pfizer September 10, 2020 [id number] Covid-19 30mcg/0.3ml Pfizer October 01, 2020 [id number] Mental Status No Mental Status Information Available Medical Equipment No Medical Equipment Information available Insurance Providers Guarantor KINGSLEY LEAL Address [address] [address] Contact Info. Home Phone: Payer Policy Id Coverage Id Subscriber's Name Subscriber Id Effective Date Expiration Date [facility] [id number] AVERY MARIANO [id number] [facility] [id number] KINGSLEY LEAL [id number] SELF PAY Self N/A Social History Assigned Sex Female
--- OUTSIDE RECORDS SUMMARY | 2023-10-26 11:13 | XMS_ITS | Continuity of Care Document ---
Author Name Unknown Address [address] [place] [address] Phone Organization [facility] Address [address] [place] [address] Phone Care Team Providers Care Substitute Nurse Name Role Phone PCP, of Choice Primary Care Provider ERICK Pizano Emergency Provider [phone] Allergies, Adverse Reactions, Alerts Allergen Type Severity Reaction Last Updated Verified Status ranitidine Allergy hives April 02, 2022 8:06am Yes Active Social History Smoking Status Status Start Date End Date Date of Observa tion Ex-smoker (finding) March 8:24am Observation Status Observation Response Date of Response Alcohol Use No April 02, 2022 8:24am substance use type does not use April 02 8:24am Smoking Status Former smoker April 02, 2022 8:24am Additional Data Assigned Sex Female Problems Active Problems Medical Problem Onset Date Status Rash Active Medications Medication Status Dose Units Route Directions Qty Days St art Date End Date Instructions Doxycycline Hyclate Active 100 MG PO TWICE A DAY April 02, 2022 12:00am Immunizations Immunization Event Date Not Given Reason Dose Number Labeling Machine Operator Lot Number Vaccine Information Statement (VIS) Detail Covid-19 30mcg/0.3ml Pfizer (Purple top) September 10, 2020 [id number] Covid-19 30mcg/0.3ml Pfizer (Purple top) October 01, 2020 [id number] Vital Signs Vital Reading Result Reference Range Collection Date/Time Height 68 [in_i] April 02, 2022 8:07am Weight 61.23 kg April 02, 2022 8:07am Body Temperature 100.0 [degF] 97.6-99.6 April 02, 2022 8:07am Heart Rate 93 /min 60-100 April 02, 2022 8:07am Respiratory rate 20 /min 12-24 April 02, 2022 8:07am Oxygen saturation by Pulse oximetry 97 % 95-100 April 02, 2022 8:07 am BP Systolic 100 mm[Hg] 100-140 April 02, 2022 8:07am BP Diastolic 64 mm[Hg] 50-85 April 02, 2022 8:07am Advance Directives Advance Directive Response Recorded Date/ Time Does patient have an Advanced Directive? No March 07, 2020 4:24pm Do we have a copy on file here at [facility]? No March 07, 2020 4:24pm Pt has a Living Will? No March 07, 2020 4:24pm Do we have a copy on file here at [facility] [place]? No March 07, 2020 4:24pm Pt has a Power of Community Health Nursing Director? No March 07, 2020 4:24pm Do we have a copy on file here at [facility] [place]? No March 07, 2020 4:24pm Insurance Providers Guarantor KINGSLEY LEAL Address [place] [address] Contact Info. Home Phone: Payer Policy Id Coverage Id Subscriber's Name Subscriber Id Effective Date Expiration Date [facility] [place] [facility] [id number] [facility] [id number] [facility] [id number] KINGSLEY LEAL [id number] SELF PAY Self N/A Encounters Encounter Location(s) Arrival/Admit Date Discharge/Depart Date Provider(s) Departed Emergency [facility] April 02, 2022 7:51am April 02, 2022 9:09am null Functional Status Observation Response Date Recorded Living Situation With Spouse April 02, 2022 8:07am Plan of Treatment Future Tests Future scheduled test information is unavailable Pending Tests Test Name Date ordered Gram Stain April 02, 2022 9:08 am White Blood Count April 02, 2022 9:08 am Red Blood Count April 02, 2022 9:08 am Hemoglobin April 02, 2022 9:08 am Hematocrit April 02, 2022 9:08 am Mean Corpuscular Volume April 02, 2022 9:08am Mean Corpuscular Hemoglobin April 02, 022 9:08am Mean Corpuscular Hemoglobin Concent April 02, 2022 9:08am Red Cell Distribution Width April 02, 022 9:08am Platelet Count April 02, 2022 9:08 am Mean Platelet Volume April 02, 2022 9:0 8am Neutrophils (%) (Auto) April 02, 2022 9 :08am Lymphocytes (%) (Auto) April 02, 2022 9 :08am Monocytes (%) (Auto) April 02, 2022 9:0 8am Eosinophils (%) (Auto) April 02, 2022 9 :08am Neutrophils # (Auto) April 02, 2022 9:0 8am Lymphocytes # (Auto) April 02, 2022 9:0 8am Monocytes # (Auto) April 02, 2022 9:08 am Eosinophils # (Auto) April 02, 2022 9:0 8am Differential Method April 02, 2022 9:08 am Routine Culture April 02, 2022 9:08 am SARS-CoV-2 RNA (RT-PCR) April 02, 2022 8:42am Varicella-Zoster Specimen Descript April 02, 2022 8:42am Varicella-Zoster Virus DNA (PCR) April 022021 8:42am Babesia microti DNA (PCR) April 02 9:08am Babesia duncani DNA (PCR) April 02 9:08am Babesia divergens/MO-1 (PCR) April 02, 2022 9:08am Anaplasma phagocytophila DNA (PCR) April 02, 2022 9:08am Ehrlichia chaffeensis DNA (PCR) March 9:08am Ehrlichia ewingii/canis (PCR) April 02, 2022 9:08am Ehrlichia muris-like DNA (PCR) March 9:08am Borrelia miyamotoi (PCR) April 02, 2022 9:08am Anaplasma phagocytophila IgG Ab March 9:08am Ehrlichia chaffeensis IgG Antibody April 02, 2022 9:08am Lyme Disease Serology April 02, 2022 9: 08am Babesia microti IgG Antibody April 02, 2022 9:08am Borrelia burgdorferi (PCR) April 02 9:08am Borrelia mayonii (PCR) April 02, 2022 9 :08am Borrelia garinii/afzelii (PCR) March 9:08am Lyme Disease Comment April 02, 2022 9:0 8am Future Visits Future appointment information is unavailable Referrals to Other Providers Reason for Referral Referral Start Date Provider Ingrid allen Contact Information Provider Address No Pcp Future Procedures Procedure Name Scheduled Date COVID, [facility] PCR April 02, 2022 8:42 am Lyme PCR, Blood April 02, 2022 9:08 am TICK-BOURNE ANTIBODY PANEL April 02 9:08am TICK-BOURNE PANEL,PCR April 02, 2022 9: 08am Varicella Zoster PCR April 02, 2022 8:4 2am Future Medications Future medication information is unavailable Patient Instructions Patient instructions are unavailable Hospital Discharge Instructions Additional Instructions Testing today for tick-borne illness, shingles and bacterial infection. Start treatment on doxycycline, which should be taken twice daily for 10 days. Take with a meal to reduce stomach upset (typically taken with morning and evening meals). Do not take with dairy (milk, cheese, etc) as this lowers the amount of medication that is absorbed in the stomach. It is OK to eat dairy at meals when you are not taking doxycycline. If you take a calcium supplement, do not take it while you are taking doxycycline. Doxycycline greatly increases your risk of severe sunburn. Be sure to cover up and use sunscreen on any exposed skin while you are taking it. You should be re-evaluated if you are becoming more ill or if fever and achiness do not improve with tylenol. We will be in touch with results once they come in, they will also be on the patient portal.
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
--- OUTSIDE RECORDS SUMMARY | 2023-10-26 11:13 | XMS_ITS | Continuity of Care Document ---
Author Name Unknown Address [address] [place] [address] Phone Organization [facility] Address [address] [place] [address] Phone Care Team Providers Care Storage Engineer Name Role Phone Out of Town, Provider Primary Care Provider UnaJoel Esteves Attending Provider Allergies, Adverse Reactions, Alerts No [...] developed and its performance characteristics determined by [facility]. It has not been cleared or [...] asdefined by the FDAPerformed on the [employer] 7500 Fast. [facility] Coronavirus (COVID-19)(P CR) April 08, 2020 9:00am Negative Negative 2019-novel Coronavirus (2019-nCoV) not detected by theqRT-PCR assay. Consider testing for other respiratoryviru ses or re-collecting for 2019-nCoV testing. Note:Optimum timing for peak viral levels during infectionscause d by 2019-nCoV have not been determined. Collection ofmultiple specimens from the same patient may be necessaryto detect the virus.Limitatio nsPositive results are indicative of active infection iuffBQZL-PwU-6 but do not rule out bacterial infection [...] laboratory in accordancewith CLIA regulations, College of [place]([place] P) guidelines (Dec 06, 2019), and FDA guidance (2019).This test is only for use under the Food and DrugAdministrat ion's Emergency Use Authorization. [facility] Coronavirus (COVID-19)(P CR) June 12, 2020 9:00am Negative Negative 2019-novel Coronavirus (2019-nCoV) not detected by theqRT-PCR assay. Consider testing for other respiratoryviru ses or re-collecting for 2019-nCoV testing. Note:Optimum timing for peak viral levels during infectionscause d by 2019-nCoV have not been determined. Collection ofmultiple specimens from the same patient may be necessaryto detect the virus.Limitatio nsPositive results are indicative of active infection uqfgIVNW-GjP-9 but do not rule out bacterial infection [...] laboratory in accordancewith CLIA regulations, College of [place] Path[employer]([place] P) guidelines (Dec 06, 2019), and FDA guidance (2019).This test is only for use under the Food and DrugAdministrat ion's Emergency Use Authorization. [facility] Coronavirus (COVID-19)(P CR) May 13, 2020 9:00am Negative Negative 2018-novel Coronavirus (2019-nCoV) not detected by theqRT-PCR assay. Consider testing for other respiratoryviru ses or re-collecting for 2019-nCoV testing. Note:Optimum timing for peak viral levels during infectionscause d by 2019-nCoV have not been determined. Collection ofmultiple specimens from the same patient may be necessaryto detect the virus.Limitatio nsPositive results are indicative of active infection zjeiPOUN-IrW-0 but do not rule out bacterial infection [...] laboratory in accordancewith CLIA regulations, College of [place] Pathologists([place] P) guidelines (Dec 06, 2019), and FDA guidance (2019).This test is only for use under the Food and DrugAdministrat ion's Emergency Use Authorization. [facility] Reference Lab Test Performing Site April 08, 2020 9:00am [facility] Please indicate the Triage [id number] Source: NPTest performed or referred [address] LABORATORIES Reference Lab Test Performing Site March 11, 2020 8:15am Ab [address]500 [facility] lab Is Patient Admitted or Awaiting Admission?:NOCO VID Source: NPTest performed or referred [address] LABORATORIES Reference Lab Test Performing Site June 12, 2020 9:00am [facility] COVID Source: NPPlease indicate the Triage TierTier 2Test performed or referred [address] LABORATORIES Reference Lab Test Performing Site May 13, 2020 9:00am [facility] COVID Source: NPPlease indicate the Triage [id number] performed or referred byThe [address] Advance Directives Advance Directive Response Recorded Date/ Time Does patient have an Advanced Directive? No March 07, 2020 4:24pm Do we have a copy on file here at [facility]? No March 07, 2020 4:24pm Pt has a Living Will? No March 07, 2020 4:24pm Do we have a copy on file here at [facility]? No March 07, 2020 4:24pm Pt has a Power of Forms Designer? No March 07, 2020 4:24pm Do we have a copy on file here at [facility]? No March 07, 2020 4:24pm Chief Complaint and Reason for Visit Chief Complaint COVID SWAB COVID SWAB COVID SWAB COVID SWAB COVID SWAB Encounters Encounter Location(s) Arrival/Admit Date Discharge/Depart Date Provider(s) Departed [facility] March 11, 2020 8:10am March 11, 2020 8:11am Joel Cantu DMD Departed [facility] April 08, 2020 8:15am April 08, 2020 8:20am [facility] 8[facility] May 13, 2020 8:51am [facility] 7:53[facility] June 12, 2020 7:54am [facility] July 15, 2020 7:49am July 15, 2020 7:50am Joel Cantu DMD Assessments No Assessments Information Available Functional Status No Functional Status information available Goals Goals may be documented in an alternate section. Mental Status No Mental Status Information Available Medical Equipment No Medical Equipment Information available Insurance Providers Guarantor KINGSLEY LEAL Address [address] [address] Contact Info. Home Phone: Payer Policy Id Coverage Id Subscriber's Name Subscriber Id Effective Date Expiration Date BAKARI BREEN OUT [facility] [id number] [place] [id number] SELF PAY Self N/A Social History Assigned Sex Female
--- OUTSIDE RECORDS SUMMARY | 2023-10-26 11:13 | XMS_ITS | Continuity of Care Document ---
Author Name Unknown Address [address] [place] [address] Phone Organization [facility] Address [address] [place] [address] Phone Care Team Providers Care Steel Erecting Pusher Name Role Phone PCP, of Choice Primary Care Provider ERICK Pizano Emergency Provider [phone] Allergies, Adverse Reactions, Alerts Allergen Type Severity [...] Event Date Not Given Reason Dose Number Rn Advanced Lot Number Vaccine Information Statement (VIS) Detail Covid-19 30mcg/0.3ml Pfizer (Purple top) September 10, 2020 [id number] Covid-19 30mcg/0.3ml Pfizer (Purple top) October 01, 2020 [id number] Vital Signs Vital Reading Result Reference Range [...] have a copy on file here at [facility]? No March 07, 2020 4:24pm Pt has a Living Will? No March 07, 2020 4:24pm Do we have a copy on file here at [facility]? No March 07, 2020 4:24pm Pt has a Power of Threading Machine Setter? No March 07, 2020 4:24pm Do we have a copy on file here at [facility]? No March 07, 2020 4:24pm Insurance Providers Guarantor KINGSLEY LEAL Address [place] [address] Contact Info. Home Phone: Payer Policy Id Coverage Id Subscriber's Name Subscriber Id Effective Date Expiration Date [facility] [employer] OUT [facility] [id number] [facility] [id number] [facility] [id number] KINGSLEY LEAL [id number] SELF PAY Self N/A Encounters Encounter Location(s) Arrival/Admit Date Discharge/Depart Date Provider(s) Departed Emergency [facility] April 02, 2022 7:51am April 02, 2022 [...]
--- OUTSIDE RECORDS SUMMARY | 2023-10-26 11:13 | XMS_ITS | Continuity of Care Document ---
Author Name [facility] Address [address] [place] [address] Organization [facility] Address [address] [place] [address] Care Team Providers Care Merchandise Presentation Manager Name Role Phone Out of Town, [...] developed and its performance characteristics determined by [facility]. It has not been cleared or approved [...] by the FDA Performed on the [employer] Fast. Coronavirus (COVID-19)(PCR) July 15, 2020 9:00am Negative Reference Lab Test Performing Site July 15, 2020 9:00am [facility] Advance Directives Advance Directive Response Recorded Date/ Time Do we have a copy on file here at [facility]? No March 07, 2020 4:24pm Does patient have an Advanced Directive? No March 07, 2020 4:24pm Pt has a Living Will? No March 07 4:24pm Pt has a Power of Police Commissioner? No March 07, 2020 4:24pm Chief Complaint and Reason for Visit Encounter Admit Date Chief Complaint Reason for V isit Departed Clinical April 08, 2020 8:15am COVID SWAB Hospital Discharge Instructions No known hospital discharge instructions. Encounters Encounter Facility Location Admit/Visit Date Discharge/Departure Date Attending Provider Departed [facility] August 02, 2020 8:33am August 02, 2020 8:34am [facility], [facility] 7:49am July 15, 2020 7:50am [facility] 12, 2020 7:53am June 12, 2020 7:54am [facility], 2020 8:50am May 13, 2020 8:51am [facility] April 08, 2020 8:15am April 08, 2020 8:20am [facility] March 11, 2020 8:10am March 11, 2020 8:11am Joel Cantu Functional Status No known functional status. Immunizations No known immunizations. Plan of Care No Known Plan of Care Information Social History No known social history. Vital Signs No known vital signs results.
--- OUTSIDE RECORDS SUMMARY | 2023-10-26 11:13 | XMS_ITS | Continuity of Care Document ---
Author Name Unknown Address [address] [place] [address] Phone Organization [facility] Address [address] [place] [address] Phone Care Team Providers Care Clock And Watch Hands Mounter Name Role Phone Out of Town, Provider Primary Care Provider UnaJoel Esetves Attending Provider [phone] Allergies, Adverse Reactions, Alerts No allergy information [...] developed and its performance characteristics determined by [facility]. It has not been cleared or approved [...] asdefined by the FDAPerformed on the [employer] 7500 Fast. [facility] Coronavirus (COVID-19)(P CR) April 08, 2020 8:00am Negative Negative 2019-novel Coronavirus (2019-nCoV) not detected by theqRT-PCR assay. Consider testing for other respiratoryviru ses or re-collecting for 2019-nCoV testing. Note:Optimum timing for peak viral levels during infectionscause d by 2019-nCoV have not been determined. Collection ofmultiple specimens from the same patient may be necessaryto detect the virus.Limitatio nsPositive results are indicative of active infection coyjHBNG-MhP-2 but do not rule out bacterial infection [...] laboratory in accordancewith CLIA regulations, College of [place] Pathologists([place] P) guidelines (Dec 06, 2019), and FDA guidance (2019).This test is only for use under the Food and DrugAdministrat ion's Emergency Use Authorization. [facility] Coronavirus (COVID-19)(P CR) July 15, 2020 8:00am Negative [facility] Coronavirus (COVID-19)(P CR) June 12, 2020 8:00am Negative Negative 2019-novel Coronavirus (2019-nCoV) not detected by theqRT-PCR assay. Consider testing for other respiratoryviru ses or re-collecting for 2019-nCoV testing. Note:Optimum timing for peak viral levels during infectionscause d by 2019-nCoV have not been determined. Collection ofmultiple specimens from the same patient may be necessaryto detect the virus.Limitatio nsPositive results are indicative of active infection yeqdMTCL-GhL-9 but do not rule out bacterial infection [...] laboratory in accordancewith CLIA regulations, College of [employer] Pathologists([place] P) guidelines (Dec 06, 2019), and FDA guidance (2019).This test is only for use under the Food and DrugAdministrat ion's Emergency Use Authorization. [facility] Coronavirus (COVID-19)(P CR) May 13, 2020 8:00am Negative Negative 2019-novel Coronavirus (2019-nCoV) not detected by theqRT-PCR assay. Consider testing for other respiratoryviru ses or re-collecting for 2019-nCoV testing. Note:Optimum timing for peak viral levels during infectionscause d by 2019-nCoV have not been determined. Collection ofmultiple specimens from the same patient may be necessaryto detect the virus.Limitatio nsPositive results are indicative of active infection xueeMMRO-AzV-2 but do not rule out bacterial infection [...] laboratory in accordancewith CLIA regulations, College of [place] Pathologists([place] P) guidelines (Dec 06, 2019), and FDA guidance (2019).This test is only for use under the Food and DrugAdministrat ion's Emergency Use Authorization. [facility] [employer]eebel Reference Lab Test Performing Site April 08, 2020 8:00am [facility] Please indicate the Triage [id number] Source: NPTest performed or referred by[address] LABORATORIES Reference Lab Test Performing Site March 11, 2020 7:15am Ab 7500 [facility] Is Patient Admitted or Awaiting Admission?:NOCO VID Source: NPTest performed or referred by[address] LABORATORIES Reference Lab Test Performing Site July 15, 2020 8:00am [facility] LABORATORIES Reference Lab Test Performing Site June 12, 2020 8:00am [facility] COVID Source: NPPlease indicate the Triage TierTier 2Test performed or referred by[address] Reference Lab Test Performing Site May 13, 2020 8:00am [facility] COVID Source: NPPlease indicate the Triage Jgsk7Nszw performed or referred by[address] Advance Directives Advance Directive Response Recorded Date/ Time Does patient have an Advanced Directive? No March 07, 2020 3:24pm Do we have a copy on file here at [facility]? No March 07, 2020 3:24pm Pt has a Living Will? No March 07, 2020 3:24pm Do we have a copy on file here at [facility]? No March 07, 2020 3:24pm Pt has a Power of Cable Wirer? No March 07, 2020 3:24pm Do we have a copy on file here at [facility]? No March 07, 2020 3:24pm Chief Complaint and Reason for Visit Chief Complaint COVID SWAB COVID SWAB COVID SWAB COVID SWAB COVID SWAB CURBSIDE Encounters Encounter Location(s) Arrival/Admit Date Discharge/Depart Date Provider(s) Departed [facility] March 11, 2020 7:10am March 11, 2020 7:11am Joel Cantu DMD Departed [facility] April 08, 2020 7:15am April 08, 2020 7:20am [facility] May 13, 2020 7:50am May 13, 2020 7:51am Joel Cantu DMD Departed [facility] June 12, 2020 6:53am June 12, 2020 6:54am [facility] July [facility], 2020 6:49am July 15, 2020 6:50am [facility], 2020 8:33am August 02, 2020 8:34am Joel Cantu DMD Assessments No Assessments Information Available Functional Status No Functional Status information available Goals Goals may be documented in an alternate section. Mental Status No Mental Status Information Available Medical Equipment No Medical Equipment Information available Insurance Providers Guarantor KINGSLEY MEL Address [address] [address] Contact Info. Home Phone: Payer Policy Id Coverage Id Subscriber's Name Subscriber Id Effective Date Expiration Date [facility] [id number] [facility] [place] [id number] [facility] [id number] TESFAYE LEAL [id number] SELF PAY Self N/A Social History Assigned Sex Female
--- OUTSIDE RECORDS SUMMARY | 2023-10-26 11:13 | XMS_ITS | Continuity of Care Document ---
Author Name Unknown Address [address] [place] [address] Phone Organization [facility] Address [address] [place] [address] Phone Care Team Providers Care Newspaper Deliverer Name Role Phone Out of Town, Provider [...] and its performance characteristics determined by [facility]. It has not been cleared [...] asdefined by the FDAPerformed on the [employer] 7500 Fast. [facility] Coronavirus (COVID-19)(P CR) April 08, [...] nsPositive results are indicative of active infection femtWITV-WsV-5 but do not rule out bacterial infection [...] laboratory in accordancewith CLIA regulations, College of [place] Pathologists([place] P) guidelines (Dec 06, 2019), and FDA guidance (2019).This test is only for use under the Food and DrugAdministrat ion's Emergency Use Authorization. [facility] Coronavirus (COVID-19)(P CR) June 12, [...] nsPositive results are indicative of active infection xtvtEKCT-HzH-3 but do not rule out bacterial infection [...] laboratory in accordancewith CLIA regulations, College of [place]([place] P) guidelines (Dec 06, 2019), and FDA guidance (2019).This test is only for use under the Food and DrugAdministrat ion's Emergency Use Authorization. [facility] Coronavirus (COVID-19)(P CR) May 13, [...] nsPositive results are indicative of active infection lwaaUUXR-MmI-1 but do not rule out bacterial infection [...] laboratory in accordancewith CLIA regulations, College of [place] Pathologists([place] P) guidelines (Dec 06, 2019), and FDA guidance (2019).This test is only for use under the Food and DrugAdministrat ion's Emergency Use Authorization. [facility] Reference Lab Test Performing Site April 08, 2020 9:00am [facility] Please indicate the Triage [id number] Source: NPTest performed or referred by[address] LABORATORIES Reference Lab Test Performing Site March 11, 2020 8:15am Ab 7500 [facility] lab Is Patient Admitted or Awaiting Admission?:NOCO VID Source: NPTest performed or referred by[address] LABORATORIES Reference Lab Test Performing Site June 12, 2020 9:00am [facility] COVID Source: NPPlease indicate the Triage TierTier 2Test performed or referred by[address] LABORATORIES Reference Lab Test Performing Site May 13, 2020 9:00am [facility] COVID Source: NPPlease indicate the Triage Hdbw2Opyg performed or referred byThe [address] Advance Directives Advance Directive Response Recorded Date/ Time Does patient have an Advanced Directive? No March 07, 2020 4:24pm Do we have a copy [facility] file [facility] at [facility]? No March 07, 2020 4:24pm Pt has a Living Will? No March 07, 2020 4:24pm Do we have a copy on file here at [facility]? No March 07, 2020 4:24pm Pt has a Power of Millinery Salesperson? No March 07, 2020 4:24pm Do we have a copy on file here at [facility]? No March 07, 2020 4:24pm Chief Complaint and Reason for Visit Chief Complaint COVID SWAB COVID SWAB COVID SWAB COVID SWAB Encounters Encounter Location(s) Arrival/Admit Date Discharge/Depart Date Provider(s) Departed [facility] March 11, 2020 8:10am March 11, 2020 8:11am Joel Cantu DMD Departed [facility] April 08, 2020 8:15am April 08, 2020 8:20am Joel Cantu DMD Departed [facility] May 13, 2020 8:50am May 13, 2020 8:51am Joel Cantu DMD Departed [facility] June 12, 2020 7:53am June 12, 2020 7:54am Joel Cantu DMD Assessments No Assessments Information Available Functional Status No Functional Status information available Goals Goals may be documented in an alternate section. Mental Status No Mental Status Information Available Medical Equipment No Medical Equipment Information available Insurance Providers Guarantor KINGSLEY LEAL Address [address] [address] Contact Info. Home Phone: Payer Policy Id Coverage Id Subscriber's Name Subscriber Id Effective Date Expiration Date BAKARI JAMSHID OUT OF [facility] [id number] [place] [id number] SELF PAY Self N/A Social History Assigned Sex Female
--- OUTSIDE RECORDS SUMMARY | 2023-10-26 11:13 | XMS_ITS | Continuity of Care Document ---
Author Name Unknown Address [address] [place] [address] Phone Organization [facility] Address [address] [place] [address] Phone Care Team Providers Care Communications Superintendent Name Role Phone Out of Town, Provider Primary Care Provider Unav Joel Pritchard Attending Provider Allergies, Adverse Reactions, Alerts No known allergies. Medications Medication Status Dose Units Route Directions Qty Days St art Date End Date Instructions COVID-19 vacc,mRNA(P fizer)(PF) 30 mcg/0.3 mL IM susp (EUA) Discontin ued 0.3 ML IM ONCE 0.3 September 10, 2020 6:55am [facility] 2019 7:27am COVID-19 vacc,mRNA(P fizer)(PF) 30 mcg/0.3 mL IM susp (EUA) Discontin ued 0.3 ML IM ONCE 0.3 October 01, 2020 7:00am October 01, 2020 7:04am Problems No problem information available. Relevant Diagnostic Tests and/or Laboratory Data Laboratory Results Test Date/Time Result Interpretation Reference Range Result Comment Performing Site SARS-CoV-2 RNA (RT-PCR) November 25, 2020 9:00am Negative Negative This test is only for use under the Food and Drug Administratio n's (FDA) Emergency Use Authorization (EUA). This test has not been FDA cleared or approved.Not for screening.Taz al swabs are considered an acceptable sample type, however performance with this type has not been established.N egative results do not preclude infection and should not be used as the sole basis of treatment or other patient management decisions. Negative results must be combined with clinical observations, patient history, and/or epidemiologic al information.F act sheets for providers can be found at: fda.gov/media /149020/downl oadFact sheets for patients can be found at: fda.gov/media /502227/downl oad [facility], [address] [place] [address] Coronavirus 2019 PCR Interp October 17, 2020 4:00pm Negative Negative This test has not been [...] invitro diagnostic tests for detection and/or diagnosis [id number] under section 564(b)(1) of Act, 21 U.S.C ?360bbb-3(b) (1), unless the authorization is terminated orrevoked sooner.Negati ve results do not preclude 2019-nCoV infection andshould not be used as the sole basis for treatment or otherpatient management decisions. Negative results must becombined with clinical observations, patient history, andepidemiolo gical information.P erformed on the GRAM Acquisitionher Fusion instrument [facility] [email or web address] Coronavirus 2019 PCR Interp March 11, 2020 7:15am Negative Negative Negative results do not preclude 2019-nCoV infection andshould not be used as the sole basis for treatment or otherpatient management decisions. Negative results must becombined with clinical observations, patient history, andepidemiolo gical information.T his test was developed and its performance characteristi csdetermined by [facility]. It has not been cleared or approved [...] asdefined by the FDAPerformed on the Applied JustFoodForDogs 7500 Fast. [facility] Coronavirus 2019 PCR Interp September 23, 2020 [...] invitro diagnostic tests for detection and/or diagnosis [id number] under section 564(b)(1) of Act, 21 U.S.C ?360bbb-3(b) (1), unless the authorization is terminated orrevoked sooner.Negati ve results do not preclude 2019-nCoV infection andshould not be used as the sole basis for treatment or otherpatient management decisions. Negative results must becombined with clinical observations, patient history, andepidemiolo gical information.T esting was performed using the makenna SARS-CoV-2 assay([employer] on the Makenna 6800 System [facility] Coronavirus 2019 PCR Interp August 26, 2020 8:15am Negative Negative Negative results do not preclude 2019-nCoV infection andshould not be used as the sole basis for treatment or otherpatient management decisions. Negative results must becombined with clinical observations, patient history, andepidemiolo gical information.T his test was developed and its performance characteristi csdetermined by [facility]. It has not been cleared or approved [...] modification asdefined by the FDAPerformed on the Siverge Networkso 7 Flex. [facility] Coronavirus (COVID-19)( PCR) April 08, 2020 8:00am Negative Negative 2018-novel Coronavirus (2018-nCoV) not detected by theqRT-PCR assay. Consider testing [...] its performancech aracteristics were established by our CLIA-fabbyie jean carlos,CAP-accredi simeon, high complexity laboratory in accordancewit h CLIA regulations, [employer]( CAP) guidelines (Dec 06, 2019), and FDA guidance (2019).This test is only for use under the Food and DrugAdministr atunc medical center's Emergency Use Authorization . [facility] Coronavirus (COVID-19)( PCR) July 15, 2020 8:00am Negative [facility] Coronavirus (COVID-19)( PCR) June 12, 2020 8:00am [...] its performancech aracteristics were established by our CLIA-certifyajaira evangelista,CAP-accredi simeon, high complexity laboratory in accordancewit h CLIA regulations, [employer]( CAP) guidelines (Dec 06, 2019), and FDA guidance (2019).This test is only for use under the Food and DrugAdministr atunc medical center's Emergency Use Authorization . [facility] Coronavirus (COVID-19)( PCR) May 13, 2020 8:00am Negative Negative 2018-novel Coronavirus (2019-nCoV) [...] Collection Materials listed in the FDA COVID-19Diagn ostSarmeks Tech Technologies communication (December 13, 2019) areprocessed with [...] aracteristics were established by our CLIA-certifie d,CAP-accredi simeon, high complexity laboratory in accordancewit h CLIA regulations, [employer]( CAP) guidelines (Dec 06, 2019), and FDA guidance (2019).This test is only for use under the Food and DrugAdministr atunc medical center's Emergency Use Authorization . [place] [facility] LAB[facility]ATOR[facility] Reference Lab Test Performing Site October 17, 2020 4:00pm [facility] lab COVID Source: NASALPlease indicate the Triage [id number] performed or referred byThe [address] LABORATORIES Reference Lab Test Performing Site April 08, 2020 8:00am [facility] Please indicate the Triage [id number] Source: NPTest performed or referred by[address] LABORATORIES Reference Lab Test Performing Site March 11, 2020 7:15am [facility] lab Is Patient Admitted or Awaiting Admission?:NO COVID Source: NPTest performed or referred by[address] LABORATORIES Reference Lab Test Performing Site September 23, 2020 9:00am [facility] lab COVID Source: NASALPlease indicate the Triage [id number] performed or referred by[address] LABORATORIES Reference Lab Test Performing Site August 26, 2020 8:15am [facility] lab COVID Source: NASALPlease indicate the Triage TierTIER 2Test performed or referred by[address] LABORATORIES Reference Lab Test Performing Site July 15, 2020 8:00am [facility] LAB[facility]ATOR[facility] Reference Lab Test Performing Site June 12, 2020 8:00am [facility] COVID Source: NPPlease indicate the Triage TierTier 2Test performed or referred by[address] LABORATORIES Reference Lab Test Performing Site May 13, 2020 8:00am [facility] COVID Source: NPPlease indicate the Triage Laom4Yreg performed or referred by[address] LABORATORIES SARS Source August 02, 2020 11:00am Nasopharynx [facility] Patient Race (MISC) August 02, 2020 11:00am Unknown [facility] Patient Ethnicity (MISC panel) August 02, 2020 11:00am Unknown [facility] SARS Virus RNA (PCR) August 02, 2020 11:00am Undetected Undetected SARS-CoV-2 RNA absent. This result does not rule outCOVID-19 in the patient, as the sensitivity of the testdepends on the timing of the specimen collection and thequality of the specimen. Result should be correlated withpatient's history and clinical presentation. [facility] SARS-CoV-2 Comment August 02, 2020 11:00am See comment PKELM- This test uses the PerkinElmer New CoronavirusNu cleic Acid Detection Kit (ExteNet Systems, Inc.), and isperformed on the AmSafe instrument and Recipharm 7500 Fast Real-Time PCR System. It has receivedEmerg ency Use Authorization (EUA) by the U.S. Food and DrugAdministr ation, and is modified from the compactor driver' sinstructions with a bridging study. Performancech aracteristics were verified by [facility] in a mannerconsist ent with CLIA requirements. Fact sheets for this Emergency Use Authorization (EUA) canbe found at the following links:https:/ /www.fda.gov/ media/405003/ download for HealthcarePro vidershttps:/ /www.fda.gov/ media/474519/ download for PatientsTest Performed by:[address] [address]Kci Director: Marco Enciso M.D. Ph.D.; CLIA# [id number] [facility] Advance Directives Advance Directive Response Recorded Date/ Time Does patient have an Advanced Directive? No March 07, 2020 3:24pm Do we have a copy on file here at [facility]? No March 07, 2020 3:24pm Pt has a Living Will? No March 07, 2020 3:24pm Do we have a copy on file here at [facility]? No March 07, 2020 3:24pm Pt has a Power of Leather Polisher? No March 07, 2020 3:24pm Do we have a copy on file here at [facility]? No March 07, 2020 3:24pm Chief Complaint and Reason for Visit Chief Complaint COVID SWAB COVID SWAB COVID SWAB COVID SWAB COVID SWAB CURBSIDE CURBSIDE Covid Vaccine 1st Dose COVID SWAB Covid Vaccine 2nd Dose COVID SWAB Contact with and (suspected) exposure to COVID-19 Encounters Encounter Location(s) Arrival/Admit Date Discharge/Depart Date Provider(s) Departed Clinical [facility] March 11, 2020 7:10am March 11, 2020 7:11am Joel Cantu DMD Departed Clinical [facility] April 08, 2020 7:15am April 08, 2020 7:20am Joel Cantu DMD Departed [facility] May 13, 2020 7:50am May 13, 2020 7:51am Joel Cantu DMD Departed [facility] June 12, 2020 6:53am June 12, 2020 6:54am Joel Cantu DMD Departed [facility] July 15, 2020 6:49am July 15, 2020 6:50am Joel Cantu DMD Departed [facility] August 02, 2020 8:33am August 02, 2020 8:34am Joel Cantu DMD Departed [facility] August 26, 2020 10:43am August 26, 2020 10:44am Joel Cantu DMD Departed Physician/Prov ider Office Visit [facility] September 10, 2020 6:55am September 10, 2020 8:13am Ollie Oliver MD Departed [facility] September 23, 2020 8:01am September 23, 2020 8:02am Joel Cantu DMD Departed Physician/Prov ider Office Visit [facility] October 01, 2020 6:57am October 01, 2020 7:18am Ollie Oliver MD [facility] October 17, 2020 7:51am October 17, 2020 7:52am Joel Cantu DMD Departed [facility] November 25, 2020 8:55am November 25, 2020 8:56am Joel Cantu DMD Assessments No Assessments Information Available Functional Status No Functional Status information available Goals Goals may be documented in an alternate section. Immunizations Immunization Event Date Not Given Reason Dose Number General Manager Lot Number Vaccine Information Statement (VIS) Detail Covid-19 30mcg/0.3ml Pfizer September 10, 2020 [id number] Covid-19 30mcg/0.3ml Pfizer October 01, 2020 [id number] Mental Status No Mental Status Information Available Medical Equipment No Medical Equipment Information available Insurance Providers Guarantor KINGSLEY MEL Address [address] [address] Contact Info. Home Phone: Payer Policy Id Coverage Id Subscriber's Name Subscriber Id Effective Date Expiration Date [facility] [id number] AVERY QUINTANA [id number] [facility] [id number] KINGSLEY LEAL [id number] SELF PAY Self N/A Social History Assigned Sex Female
--- OUTSIDE RECORDS SUMMARY | 2023-10-26 11:13 | XMS_ITS | Continuity of Care Document ---
Author Name [facility] Address [address] [place] [address] Organization [facility] Address [address] [place] [address] Care Team Providers Care Fusion Operator Name Role Phone Out of Town, Provider [...] developed and its performance characteristics determined by [facility]. It has not been cleared [...] by the FDA Performed on the Applied BlackJet Fast. Coronavirus (COVID-19)(PCR) July 15, 2020 9:00am Negative Reference Lab Test Performing Site July 15, 2020 9:00am [facility] SARS Source August 02, 2020 11:00am Nasopharynx Patient Race (MISC) August 02, 2020 11:00am Unknown Patient Ethnicity (MISC panel) August 02, 2020 11:00am Unknown SARS Virus RNA (PCR) August 02, 2020 11:00am Undetected SARS-CoV-2 RNA absent. This result does not rule out COVID-19 in the patient, as the sensitivity of the test depends on the timing of the specimen collection and the quality of the specimen. Result should be correlated with patient's history and clinical presentation. SARS-CoV-2 Comment August 02, 2020 11:00am See comment PKELM- This test uses the Listar New Coronavirus Nucleic Acid Detection Kit (Listar, Inc.), and is performed on the Applied Gen[employer] Technologies Corporation instrument and Applied Tenfoot 7500 Fast Real-Time PCR System. It has received Emergency Use Authorization (EUA) by the U.S. Food and Drug Administration, and is modified from the high school math tutor's instructions with a bridging study. Performance characteristics were verified by [facility] in a manner consistent with CLIA requirements. Fact sheets for this Emergency Use Authorization (EUA) can be found at the following links: https://www.fda.gov/ media/549377/downloa d for Healthcare Providers https://www.fda.gov/ media/134842/downloa d for Patients Test Performed by: [facility] [place] [address] [employer] Supervisor: Marco Enciso M.D. Ph.D.; CLIA# [id number] Advance Directives Advance Directive Response Recorded Date/ Time Do we have a copy on file here at [facility]? No March 07, 2020 4:24pm Does patient have an Advanced Directive? No March 07, 2020 4:24pm Pt has a Living Will? No March 07 4:24pm Pt has a Power of Long Line Teamster? No March 07, 2020 4:24pm Chief Complaint and Reason for Visit Encounter Admit Date Chief Complaint Reason for V isit Departed Clinical April 08, 2020 8:15am COVID SWAB Hospital Discharge Instructions No known hospital discharge instructions. Encounters Encounter Facility Location Admit/Visit Date Discharge/Departure Date Attending Provider Departed [facility] August 26, 2020 10:43am August 26, 2020 10:44am Joel Cantu Departed [facility] August 02, 2020 8:33am August 02, 2020 8:34am Joel Cantu Departed [facility] July 15, 2020 7:49am July 15, 2020 7:50am Joel Cantu Departed [facility] Curbside June 12, 2020 7:53am June 12, 2020 7:54am Joel Cantu Departed [facility] Laboratory May 13, 2020 8:50am May 13, 2020 8:51am [facility] 08, 2020 8:15am April 08, 2020 8:20am [facility] March 11, 2020 8:10am March 11, 2020 8:11am Joel Cantu Functional Status No known functional status. Immunizations No known immunizations. Plan of Care No Known Plan of Care Information Social History No known social history. Vital Signs No known vital signs results.
--- OUTSIDE RECORDS SUMMARY | 2023-10-26 11:13 | XMS_ITS | Continuity of Care Document ---
Author Name [facility] Address [address] [place] [address] Organization [facility] Address [address] [place] [address] Care Team Providers Care Sole Inker Name Role Phone Out of Town, Provider [...] developed and its performance characteristics determined by [facility]. It has not been cleared or [...] by the FDA Performed on the Applied Viyet Fast. Reference Lab Test Performing Site March 11, 2020 8:15am [employer] [facility] Is Patient Admitted or Awaiting Admission?:NO COVID Source: MODELING AGENT Test performed or referred by The [address] [address] Advance Directives Advance Directive Response Recorded Date/ Time Do we have a copy on file here at [facility]? No March 07, 2020 4:24pm Does patient have an Advanced Directive? No March 07, 2020 4:24pm Pt has a Living Will? No March 07 4:24pm Pt has a Power of Warp Spooler? No March 07, 2020 4:24pm Chief Complaint [...] immunizations. Payers Payer Name Policy Type Covered Constitution Party Covered Constitution Party Id Relationship Subscriber Subscriber Id [facility] OUT OF STATE Commercial AVERY QUINTANA [id number] Spouse AVERY QUINTANA [id number] SELF PAY Personal Plan of Care No Known Plan of Care Information Social History No known social history. Vital Signs No known vital signs results.
--- OUTSIDE RECORDS SUMMARY | 2023-10-26 11:13 | XMS_ITS | Continuity of Care Document ---
Author Name Unknown Address [address] [place] [address] Phone Organization [facility] Address [address] [place] [address] Phone Care Team Providers Care Resistor Testing Machine Operator Name Role Phone Out of Town, Provider Primary Care Provider Unav ailable Joel Cantu Attending Provider [phone] Allergies, Adverse Reactions, Alerts No known allergies. Medications Medication Status Dose Units Route Directions Qty Days St art Date End Date Instructions COVID-19 vacc,mRNA(P fizer)(PF) 30 mcg/0.3 mL IM susp (EUA) Discontin ued 0.3 ML IM ONCE 0.3 September 10, 2020 6:55am Decembe r 2019 7:27am Problems No problem information available. Relevant Diagnostic [...] developed and its performance characteristi csdetermined by [facility]. It has not been cleared [...] laboratory testing.This test is based on the [facility] COVID-19 Emergency UseAuthorizat ion (EUA) assay, with minor modification asdefined by the FDAPerformed on the Applied Sky Frequency 7500 Fast. [facility] Coronavirus 2019 PCR Interp August 26, 2020 8:15am Negative Negative Negative results do not preclude 2019-nCoV infection andshould not be used as the sole basis for treatment or otherpatient management decisions. Negative results must becombined with clinical observations, patient history, andepidemiolo gical information.T his test was developed and its performance characteristi csdetermined by [facility]. It has not been cleared [...] laboratory testing.This test is based on the [facility] COVID-19 Emergency UseAuthorizat ion (EUA) assay, with minor modification asdefined by the FDAPerformed on the Playdomo 7 Flex. [facility] Coronavirus (COVID-19)( PCR) April 08, 2020 [...] as the sole basis for patient managementde isions. Negative results must be combined with [...] Collection Materials listed in the FDA COVID-19Diagn [employer] communication (December 13, 2019) areprocessed with [...] in accordancewit h CLIA regulations, College of [employer] Pathologists( CAP) guidelines (Dec 06, 2019), and FDA guidance (2019).This test is only for use under the Food and DrugAdministr atformerly [facility]'s Emergency Use Authorization . [facility] Pulsant Coronavirus (COVID-19)( PCR) July 15, 2020 8:00am Negative [facility] Coronavirus (COVID-19)( PCR) June 12, 2020 [...] aracteristics were established by our CLIA-keron evangelista CAP-accredi simeon, high complexity laboratory in accordancewit h CLIA regulations, College of [employer] Pathologists( CAP) guidelines (Dec 06, 2019), and FDA guidance (2019).This test is only for use under the Food and DrugAdministr atformerly [facility]'s Emergency Use Authorization . [facility] Coronavirus (COVID-19)( PCR) May 13, 2020 [...] in accordancewit h CLIA regulations, College of [employer] Pathologists( CAP) guidelines (Dec 06, 2019), and FDA guidance (2019).This test is only for use under the Food and DrugAdministr atformerly [facility]'s Emergency Use Authorization . [facility] LABORATORIES Reference Lab Test Performing Site April 08, 2020 8:00am [facility] Please indicate the Triage [id number] Source: NPTest performed or referred by[address] LABORATORIES Reference Lab Test Performing Site March 11, 2020 7:15am Ab [address] [facility] lab Is Patient Admitted or Awaiting Admission?:NO COVID Source: NPTest performed or referred by[address] LABORATORIES Reference Lab Test Performing Site August 26, 2020 8:15am [facility] lab COVID Source: NASALPlease indicate the Triage TierTIER 2Test performed or referred by[address] LABORATORIES Reference Lab Test Performing Site July 15, 2020 8:00am [facility] MEDICAL LABORATORIES Reference Lab Test Performing Site June 12, 2020 8:00am [facility] COVID Source: NPPlease indicate the Triage TierTier 2Test performed or referred by[address] LABORATORIES Reference Lab Test Performing Site May 13, 2020 8:00am [facility] COVID Source: NPPlease indicate the Triage [id number] performed or referred byThe [address] SARS Source August 02, 2020 11:00am Nasopharynx [facility] Patient Race (MISC) August 02, 2020 11:00am Unknown [facility] Patient Ethnicity ([facility] panel) August 02, 2020 11:00am Unknown [facility] SARS Virus RNA (PCR) August 02, 2020 11:00am Undetected Undetected SARS-CoV-2 RNA absent. This result does not rule outCOVID-19 in the patient, as the sensitivity of the testdepends on the timing of the specimen collection and thequality of the specimen. Result should be correlated withpatient's history and clinical presentation. [facility] SARS-CoV-2 Comment August 02, 2020 11:00am See comment PKELM- This test uses the Cognitive Networks New CoronavirusNu cleic Acid Detection Kit (Cognitive Networks, Inc.), and isperformed on the ClickMagic instrument and [employer] 7500 Fast Real-Time PCR System. It has receivedEmerg ency Use Authorization (EUA) by the U.S. Food and DrugAdministr ation, and is modified from the pediatric registered nurse' sinstructions with a bridging study. Performancech aracteristics were verified by [facility] in a mannerconsist ent with CLIA requirements. Fact sheets for this Emergency Use Authorization (EUA) canbe found at the following links:https:/ /www.fda.gov/ media/870722/ download for HealthcarePro vidershttps:/ /www.fda.gov/ media/375087/ download for PatientsTest Performed by:[address] [address]Icz Director: Marco Enciso M.D. Ph.D.; CLIA# [id number] [facility] Advance Directives Advance Directive Response Recorded Date/ Time Does patient have an Advanced Directive? No March 07, 2020 3:24pm Do we have a copy on file here at [facility]? No March 07, 2020 3:24pm Pt has a Living Will? No March 07, 2020 3:24pm Do we have a copy on file here at [facility]? No March 07, 2020 3:24pm Pt has a Power of Gas Fitter? No March 07, 2020 3:24pm Do we have a copy on file here at [facility]? No March 07, 2020 3:24pm Chief Complaint and Reason for Visit Chief Complaint COVID SWAB COVID SWAB COVID SWAB COVID SWAB COVID SWAB [facility] Covid Vaccine 1st Dose COVID SWAB Encounters Encounter Location(s) Arrival/Admit Date Discharge/Depart Date Provider(s) Departed [facility] March 11, 2020 7:10am March 11, 2020 7:11am Joel Cantu DMD Departed [facility] April 08, 2020 7:15am April 08, 2020 7:20am Joel Cantu DMD Departed [facility] May 13, 2020 7:50am May 13, 2020 7:51am [facility] 6:53am June 12, 2020 6:54am Joel Cantu DMD Departed [facility] July 15, 2020 6:49am July 15, 2020 6:50am Joel Cantu DMD Departed [facility] August 02, 2020 8:33am August 02, 2020 8:34am Joel Cantu DMD Departed [facility] August 26, 2020 10:43am August 26, 2020 10:44am Joel Cantu DMD Departed Physician/Prov ider Office Visit [facility] September 10, 2020 6:55am September 10, 2020 8:13am Ollie Oliver MD Departed [facility] September 23, 2020 8:01am September 23, 2020 8:02am Joel Cantu DMD Assessments No Assessments Information Available Functional Status No Functional Status information available Goals Goals may be documented in an alternate section. Immunizations Immunization Event Date Not Given Reason Dose Number Director Operations Broadcast Lot Number Vaccine Information Statement (VIS) Detail Covid-19 30mcg/0.3ml Pfizer September 10, 2020 [id number] Mental Status No Mental Status Information Available Medical Equipment No Medical Equipment Information available Insurance Providers Guarantor KINGSLEY MEL Address [address] [address] Contact Info. Home Phone: Payer Policy Id Coverage Id Subscriber's Name Subscriber Id Effective Date Expiration Date [facility] [id number] AVERY QUINTANA [id number] [facility] [id number] KINGSLEY MEL [id number] SELF PAY Self N/A Social History Assigned Sex Female
--- OUTSIDE RECORDS SUMMARY | 2023-10-26 11:13 | XMS_ITS | Continuity of Care Document ---
Author Name [facility] Address [address] [place] [id number] Organization [facility] Address [address] [place] [address] Care Team Providers Care Exhibition Organiser Name Role Phone Out of Town, Provider Primary Care Physician Joel Lott Attending Physician Allergies, Adverse Reactions, Alerts No allergy information available. Medications No medication information available. Problem List No problem information available. Procedures No known history of procedures. Relevant Diagnostic Tests and/or Laboratory Data No known relevant diagnostic tests, laboratory data, and/or discharge summary. Advance Directives Advance Directive Response Recorded Date/ Time Do we have a copy on file here at [facility]? No March 07, 2020 4:24pm Does patient have an Advanced Directive? No March 07, 2020 4:24pm Pt has a Living Will? No March 07 4:24pm Pt has a Power of Mailroom Supervisor? No March 07, 2020 4:24pm Chief Complaint and Reason for Visit Encounter Admit Date Chief Complaint Reason for V isit Departed Clinical March 11, 2020 8:10am COVID SWAB Hospital Discharge Instructions No known hospital discharge instructions. Encounters Encounter Facility Location Admit/Visit Date Discharge/Departure Date Attending Provider Departed Clinical [facility] Laboratory March 11, 2020 8:10am March 11, 2020 8:11am Joel Cantu Functional Status No known functional status. Immunizations No known immunizations. Payers Payer Name Policy Type Covered Democrat Covered Democrat Id Relationship Subscriber Subscriber Id BLUE CROSS OUT OF STATE Commercial AVERY QUINTANA [id number] Spouse AVERY QUINTANA [id number] SELF PAY Personal Plan of Care No Known Plan of Care Information Social History No known social history. Vital Signs No known vital signs results.
--- OUTSIDE RECORDS SUMMARY | 2023-10-26 11:13 | XMS_ITS | Continuity of Care Document ---
Author Name Unknown Address [address] [place] [address] Phone Organization [facility] Address [address] [place] [address] Phone Care Team Providers Care Rotary Dryer Operator Name Role Phone Out of Town, Provider Primary Care Provider Unav Joel Pritchard Attending Provider Allergies, Adverse Reactions, Alerts No known allergies. Medications Medication Status Dose Units Route Directions Qty Days St art Date End Date Instructions COVID-19 vacc,mRNA(P fizer)(PF) 30 mcg/0.3 mL IM susp (EUA) Discontin ued 0.3 ML IM ONCE 0.3 September 10, 2020 6:55am [facility] 2019 7:27am COVID-19 vacc,mRNA(P fizer)(PF) 30 mcg/0.3 [...] developed and its performance characteristi csdetermined by [facility]. It has not been cleared [...] asdefined by the FDAPerformed on the [employer] Tr[employer] 7500 Fast. [facility] Coronavirus 2019 PCR Interp September 23, [...] invitro diagnostic tests for detection and/or diagnosis [id number] under section 564(b)(1) of Act, 21 U.S.C ?360bbb-3(b) (1), unless the authorization is terminated orrevoked sooner.Negati ve results do not preclude 2019-nCoV infection andshould not be used as the sole basis for treatment or otherpatient management decisions. Negative results must becombined with clinical observations, patient history, andepidemiolo gical information.T esting was performed using the prudencio SARS-CoV-2 assay(Carestream [employer] Inc[employer] on the Prudencio 6800 System [facility] Coronavirus 2019 PCR Interp August 26, 2020 8:15am Negative Negative Negative results do not preclude 2019-nCoV infection andshould not be used as the sole basis for treatment or otherpatient management decisions. Negative results must becombined with clinical observations, patient history, andepidemiolo gical information.T his test was developed and its performance characteristi csdetermined by [facility]. It has not been cleared [...] modification asdefined by the FDAPerformed on the Funderbeamo GPMESS Flex. [facility] Coronavirus (COVID-19)( PCR) April 08, 2020 [...] Collection Materials listed in the FDA COVID-19Diagn [employer] communication (December 13, 2019) areprocessed with [...] in accordancewit h CLIA regulations, College of [place] Pathologists( CAP) guidelines (Dec 06, 2019), and FDA guidance (2019).This test is only for use under the Food and DrugAdministr [facility] Emergency Use Authorization . [facility] Coronavirus (COVID-19)( PCR) July 15, 2020 8:00am Negative [facility] Coronavirus (COVID-19)( PCR) June 12, 2020 [...] Collection Materials listed in the FDA COVID-19Diagn [employer] communication (December 13, 2019) areprocessed with [...] in accordancewit h CLIA regulations, College of [employer] Pathologists( CAP) guidelines (Dec 06, 2019), and FDA guidance (2019).This test is only for use under the Food and DrugAdministr [facility] Emergency Use Authorization . [facility] KeyMe Coronavirus (COVID-19)( PCR) May 13, 2020 8:00am [...] as the sole basis for patient [facility]de [facility]. Negative results must be combined [...] in accordancewit h CLIA regulations, College of [employer] Pathologists( CAP) guidelines (Dec 06, 2019), and FDA guidance (2019).This test is only for use under the Food and DrugAdminisunc health's Emergency Use Authorization . [facility]ORATORIES Reference Lab Test Performing Site April 08, 2020 8:00am [facility] Please indicate the Triage [id number] Source: NPTest performed or referred by[address] LABORATORIES Reference Lab Test Performing Site March 11, 2020 7:15am Ab [address]500 [facility] lab Is Patient Admitted or Awaiting Admission?:NO COVID Source: NPTest performed or referred by[address] LABORATORIES Reference Lab Test Performing Site September 23, 2020 9:00am [facility] lab COVID Source: NASALPlease indicate the Triage [id number] performed or referred by[address] LABORATORIES Reference Lab Test Performing Site August 26, 2020 8:15am [facility] lab COVID Source: NASALPlease indicate the Triage TierTIER 2Test performed or referred by[address] LABORATORIES Reference Lab Test Performing Site July 15, 2020 8:00am [facility] MEDICAL LABORATORIES Reference Lab Test Performing Site June 12, 2020 8:00am [facility] COVID Source: NPPlease indicate the Triage TierTier 2Test performed or referred by[address] LABORATORIES Reference Lab Test Performing Site May 13, 2020 8:00am [facility] COVID Source: NPPlease indicate the Triage [id number] performed or referred by[address] LABORATORIES SARS Source August 02, 2020 11:00am Nasopharynx [facility] Patient Race (MISC) August 02, 2020 11:00am Unknown [facility] Patient Ethnicity (MISC panel) August 02, 2020 11:00am Unknown [facility] SARS Virus RNA (PCR) August 02, 2020 11:00am Undetected Undetected SARS-CoV-2 RNA absent. This result does not rule outCOVID-19 in the patient, as the sensitivity of the testdepends on the timing of the specimen collection and thequality of the specimen. Result should be correlated withpatient's history and clinical presentation. [facility] SARS-CoV-2 Comment August 02, 2020 11:00am See comment PKELM- This test uses the PerkinElmer New CoronavirusNu cleic Acid Detection Kit ([employer]aze[employer], [employer].), and isperformed on the PrizeBox™ 360 instrument and [employer] 7500 Fast Real-Time PCR System. It has receivedEmerg ency Use Authorization (EUA) by the U.S. Food and DrugAdministr ation, and is modified from the medical records administrator' sinstructions with a bridging study. Performancech aracteristics were verified by [facility] in a mannerconsist ent with CLIA requirements. Fact sheets for this Emergency Use Authorization (EUA) canbe found at the following links:https:/ /www.fda.gov/ media/262044/ download for HealthcarePro vidershttps:/ /www.fda.gov/ media/934904/ download for PatientsTest Performed by:[address] [id number] Director: Marco Enciso M.D. Ph.D.; CLIA# [id number] [facility] Advance Directives Advance Directive Response Recorded [...] 2020 3:24pm Pt has a Power of Mechanical Shop Laborer? No March 07, 2020 3:24pm Do we have a copy on file here at [facility]? No March 07, 2020 3:24pm Chief Complaint and Reason for Visit Chief Complaint COVID SWAB COVID SWAB COVID SWAB COVID SWAB COVID SWAB [facility] Covid Vaccine 1st Dose COVID SWAB Covid Vaccine 2nd Dose COVID SWAB Encounters Encounter Location(s) Arrival/Admit Date Discharge/Depart Date Provider(s) Departed Clinical [facility] March 11, 2020 7:10am March 11, 2020 7:11am Joel Cantu DMD Departed [facility] April 08, 2020 7:15am April 08, 2020 7:20am Joel Cantu DMD Departed [facility] May 13, 2020 7:50am May 13, 2020 7:51am Joel Cantu DMD Departed [facility] June 12, 2020 6:53am June 12, 2020 6:54am Joel Cantu DMD Departed [facility] July 15, 2020 6:49am July 15, 2020 6:50am Joel Cantu DMD Departed [facility] August 02, 2020 8:33am August 02, 2020 8:34am Joel Cantu DMD Departed [facility] August 26, 2020 10:43am August 26, 2020 10:44am Joel Cantu DMD Departed Physician/Prov ider Office Visit [facility]ine [facility] September 10, 2020 6:55am September 10, 2020 8:13am Ollie Oliver MD [facility] September 23, 2020 8:01am September 23, 2020 8:02am Joel Cantu DMD Departed Physician/Prov ider Office Visit [facility] October 01, 2020 6:57am October 01, 2020 7:18am Ollie Oliver MD [facility] October 17, 2020 7:51am October 17, 2020 7:52am Joel Cantu DMD Assessments No Assessments Information Available Functional Status No Functional Status information available Goals Goals may be documented in an alternate section. Immunizations Immunization Event Date Not Given Reason Dose Number Corporate Licensed Broker Lot Number Vaccine Information Statement (VIS) Detail Covid-19 30mcg/0.3ml Pfizer September 10, 2020 [id number] Covid-19 30mcg/0.3ml Pfizer October 01, 2020 [id number] Mental Status No Mental Status Information Available Medical Equipment No Medical Equipment Information available Insurance Providers Guarantor KINGSLEY MEL Address [address] [address] Contact Info. Home Phone: Payer Policy Id Coverage Id Subscriber's Name Subscriber Id Effective Date Expiration Date BLUE CROSS OUT OF STATE [id number] AVERY QUINTANA [id number] [facility] [id number] KINGSLEY LEAL [id number] SELF PAY Self N/A Social History Assigned Sex Female
--- OUTSIDE RECORDS SUMMARY | 2023-10-26 11:13 | XMS_ITS | Continuity of Care Document ---
Author Name [facility] Address [address] [place] [address] [facility] Address [address] [place] [address] Care Team Providers Care Diesel Lube Tech Name Role Phone Out of Town, Provider Primary Care Physician Joel Lott Attending Physician Allergies, Adverse Reactions, Alerts No known allergies. Medications Discontinued Medications Medication Dose Units Route Sig Qty Start Date Di scontinued Date Status COVID-19 vacc,mRNA(Pfi zer)(PF) 30 mcg/0.3 mL IM susp (EUA) 0.3 ML INTRAMUSCULAR ONCE 0.3 September 10, 2020 September 10, 2020 Discontinued Problem List No problem information available. Procedures No known history of procedures. Relevant Diagnostic Tests and/or Laboratory Data Laboratory Results Test Date/Time Result Interp. Ref. Range Result Co mment Coronavirus 2019 PCR Interp August 26, 2020 8:15am Negative Negative results do not [...] defined by the FDA Performed on the Rutanet Flex. Coronavirus (COVID-19)(PCR) July 15, 2020 9:00am Negative Reference Lab Test Performing Site August 26, 2020 8:15am [facility] hospital lab COVID Source: NASAL Please indicate the Triage TierTIER 2 Test performed or referred by The [address] [address] SARS Source August 02, 2020 11:00am Nasopharynx Patient Race (MISC) August 02, 2020 11:00am Unknown [facility] August 02, 2020 11:00am Unknown SARS [...] See comment PKELM- This test uses the Meridian-IQ New Coronavirus Nucleic Acid Detection Kit (Meridian-IQ, Inc.), and is performed on the Stagend.com instrument and Applied BioSTL 7500 Fast Real-Time PCR System. It has received Emergency Use Authorization (EUA) by the U.S. Food and Drug Administration, and is modified from the aluminum container tester's instructions with a bridging study. Performance characteristics were verified by [facility] in a manner consistent with CLIA requirements. Fact sheets for this Emergency Use Authorization (EUA) can be found at the following links: https://www.fda.gov/ media/821715/downloa d for Healthcare Providers https://www.fda.gov/ media/312969/downloa d for Patients Test Performed by: [address] [address] Mastic Worker: Marco Enciso M.D. Ph.D.; CLIA# [id number] Advance Directives Advance Directive Response Recorded Date/ Time Do we have a copy on file here at [facility] No March 07, 2020 4:24pm Does patient have an Advanced Directive? No March 07, 2020 4:24pm Pt has a Living Will? No March 07 020 4:24pm Pt has a Power of Bladder Trimmer? No March 07, 2020 4:24pm Chief Complaint and Reason for Visit Encounter Admit Date Chief Complaint Reason for V isit Departed Clinical April 08, 2020 8:15am COVID SWAB Hospital Discharge Instructions No known hospital discharge instructions. Hospital Discharge Medications Medication Dose Units Route Sig Qty Days Order Date Status Instructions COVID-19 vacc,mRNA(P fizer)(PF) 30 mcg/0.3 mL IM susp (EUA) 0.3 ML INTRAMUSCULAR ONCE 0.3 Decemb er 2019 Discontinued Encounters Encounter Facility Location Admit/Visit Date Discharge/Departure Date Attending Provider Departed [facility] September 23, 2020 8:01am September 23, 2020 8:02am Joel Cantu Departed Physician/Pr ovider Office Visit [facility] Covid Vaccine [facility] September 10, 2020 6:55am September 10, 2020 8:13am Ollie Oliver Departed [facility] August 26, 2020 10:43am August 26, 2020 10:44am Joel Cantu Departed [facility] August 02, 2020 8:33am August 02, 2020 8:34am Joel Cantu Departed [facility] July 15, 2020 7:49am July 15, 2020 7:50am [facility], [facility] 7:53am June 12, 2020 7:54am Joel Cantu Departed [facility] Laboratory May 13, 2020 8:50am May 13, 2020 8:51am [facility], 2020 8:15am April 08, 2020 8:20am [facility] March 11, 2020 8:10am March 11, 2020 8:11am Joel Cantu Functional Status No known functional status. Immunizations Immunization Name Date Given Type Covid-19 30mcg/0.3ml Pfizer September 10, 2020 Ad ministered Plan of Care No Known Plan of Care Information Social History No known social history. Vital Signs No known vital signs results.
--- OUTSIDE RECORDS SUMMARY | 2023-10-26 11:13 | XMS_ITS | Continuity of Care Document ---
Author Name [facility] Address [address] [place] [address] Organization [facility] Address [address] [place] [address] Care Team Providers Care Night Worker Name Role Phone Out of Town, [...] developed and its performance characteristics determined by [facility]. It has not been [...] by the FDA Performed on the Applied Travelata Fast. Coronavirus (COVID-19)(PCR) June 12, 2020 9:00am Negative 2019-novel Coronavirus (2019-nCoV) not detected by the qRT-PCR assay. Consider testing for other respiratory viruses or re-collecting for 2019-nCoV testing. Note: Optimum timing for peak viral levels during infections caused by 2019-nCoV have not been determined. Collection of multiple specimens from the same patient may be necessary to detect the virus. Limitations Positive results are indicative of active infection with SARS-CoV-2 but do not rule out bacterial infection or co-infection with other viruses. The agent detected may not be the definite cause of disease. In addition, detection of viral RNA may not indicate the presence of infectious virus or that SARS-CoV-2 is the causative agent for clinical symptoms. Negative results do not preclude SARS-CoV-2 infection and should not be used as the sole basis for patient management decisions. Negative results must be combined with clinical observations, patient history, and epidemiological information. False negative results may also occur if amplification inhibitors are present in the specimen or if inadequate numbers of organisms are present in the specimen. Optimum specimen types and timing for peak viral levels during infections caused by SARS-CoV-2 have not been fully determined. Collection of multiple specimens (types and time points) from the same patient may be necessary to detect the virus. The test was validated for use with upper respiratory specimens obtained via nasopharyngeal or oropharyngeal swabs in VTM, UTM, M4, M5, M6, saline, and MTM media. The performance of this test has not been established for other specimens. Specimens collected using other FDA recommended Specimen Collection Materials listed in the FDA COVID-19 Diagnostic Technologies communication (December 13, 2019) are processed with the caveat that they were not all validated for use with this test and the result must be interpreted in this context. Furthermore, a false negative results may occur if a specimen is improperly collected, transported or handled. If the virus mutates in the RT-PCR target region, SARS-CoV-2 may not be detected or may be detected less predictably. Inhibitors or other types of interference may produce a false negative result. An interference study evaluating the effect of common cold medications was not performed. This test is not FDA-cleared but its performance characteristics were established by our CLIA-certified, CAP-accredited, high complexity laboratory in accordance with CLIA regulations, College of Bruneian Pathologists (CAP) guidelines (Dec 06, 2019), and FDA guidance (Nov 17, 2019). This test is only for use under the Food and Drug Administration's Emergency Use Authorization. Reference Lab Test Performing Site June 12, 2020 9:00am [facility] Scripped COVID Source: IT LEAD Please indicate the Triage TierTier 2 Test performed or referred by The [address] [address] Advance Directives Advance Directive Response Recorded Date/ Time Do we have a copy on file here at [facility]? No March 07, 2020 4:24pm Does patient have an Advanced Directive? No March 07, 2020 4:24pm Pt has a Living Will? No March 07 4:24pm Pt has a Power of Lawn Technician? No March 07, 2020 4:24pm Chief Complaint and Reason for Visit Encounter Admit Date Chief Complaint Reason for V isit Departed Clinical April 08, 2020 8:15am COVID SWAB Hospital Discharge Instructions No known hospital discharge instructions. Encounters Encounter Facility Location Admit/Visit Date Discharge/Departure Date [facility], 2020 7:53am June 12, 2020 7:54am Joel Cantu [facility] May 13, 2020 8:50am May 13, 2020 8:51am [facility] April 08, 2020 8:15am April 08, 2020 8:20am Joel Cantu [facility] March 11, 2020 8:10am March 11, 2020 8:11am Joel Cantu Functional Status No known functional status. Immunizations No known immunizations. Plan of Care No Known Plan of Care Information Social History No known social history. Vital Signs No known vital signs results.
--- OUTSIDE RECORDS SUMMARY | 2023-10-26 11:13 | XMS_ITS | Continuity of Care Document ---
Author Name Unknown Address [address] [place] [address] Phone Organization [facility] Address [address] [place] [address] Phone Care Team Providers Care Alignment Mechanic Name Role Phone Out of Town, Provider Primary Care Provider Unav ailable Pepe Joel Zeynep Attending Provider [phone] Allergies, Adverse Reactions, Alerts No known allergies. Medications Medication Status Dose Units Route Directions Qty Days St art Date End Date Instructions COVID-19 vacc,mRNA(P fizer)(PF) 30 mcg/0.3 mL IM susp (Unapp) Discontin ued 0.3 ML IM ONCE 0.3 [...] developed and its performance characteristi csdetermined by [facility]. It has not been cleared or approved [...] asdefined by the FDAPerformed on the Applied MethylGene 7500 Fast. [facility] Coronavirus 2019 PCR Interp August 26, 2020 8:15am Negative Negative Negative results do not preclude 2019-nCoV infection andshould not be used as the sole basis for treatment or otherpatient management decisions. Negative results must becombined with clinical observations, patient history, andepidemiolo gical information.T his test was developed and its performance characteristi csdetermined by [facility]. It has not been cleared or approved [...] laboratory testing.This test is based on the [facility] COVID-19 Emergency UseAuthorizat ion (EUA) assay, with minor modification asdefined by the FDAPerformed on the Bobex.como 7 Flex. [facility] Coronavirus (COVID-19)( PCR) April 08, 2020 [...] as the sole basis for patient [facility]de [facility]. Negative results must be combined with clinicalobser [...] Collection Materials listed in the FDA COVID-19Diagn Eureka The[employer] Technologies communication (December 13, 2019) areprocessed with [...] in accordancewit h CLIA regulations, College of Italian Pathologists( CAP) guidelines (Dec 06, 2019), and FDA guidance (2019).This test is only for use under the Food and DrugAdministr [facility]'s Emergency Use Authorization . [facility] [employer] Coronavirus (COVID-19)( PCR) July 15, 2020 8:00am Negative [facility] Coronavirus (COVID-19)( PCR) June 12, 2020 [...] aracteristics were established by our CLIA-certifie jean carlosCAP-accredi simeon, high complexity laboratory in accordancewit h CLIA regulations, College of Italian Pathologists( CAP) guidelines (Dec 06, 2019), and FDA guidance (2019).This test is only for use under the Food and DrugAdministr atfrye [facility] medical [facility]'s Emergency Use Authorization . [facility] Coronavirus (COVID-19)( PCR) May 13, 2020 [...] in accordancewit h CLIA regulations, College of Italian Pathologists( CAP) guidelines (Dec 06, 2019), and FDA guidance (2019).This test is only for use under the Food and DrugAdministr atfrye regional medical center's Emergency Use Authorization . [facility] Reference Lab Test Performing Site April 08, 2020 8:00am [facility] Please indicate the Triage [id number] Source: NPTest performed or referred by[address] LABORATORIES Reference Lab Test Performing Site March 11, 2020 7:15am Ab [address] lab Is Patient Admitted or Awaiting Admission?:NO COVID Source: NPTest performed or referred by[address] LABORATORIES Reference Lab Test Performing Site August 26, 2020 8:15am [facility] lab COVID Source: NASALPlease indicate the Triage TierTIER 2Test performed or referred by[address] LABORATORIES Reference Lab Test Performing Site July 15, 2020 8:00am [facility] MEDICAL LABORATORIES Reference Lab Test Performing Site June 12, 2020 8:00am [facility] COVID Source: NPPlease indicate the Triage TierTier 2Test performed or referred by[address] LABORATORIES Reference Lab Test Performing Site May 13, 2020 8:00am [facility] COVID Source: NPPlease indicate the Triage [id number] performed or referred by[address] SARS Source August 02, 2020 11:00am Nasopharynx [facility] Patient Race (MISC) August 02, 2020 11:00am Unknown [facility] Patient Ethnicity ([facility] panel) August 02, 2020 11:00am Unknown [facility] SARS Virus RNA (PCR) August 02, 2020 11:00am Undetected Undetected SARS-CoV-2 RNA absent. This result does not rule outCOVID-19 in the patient, as the sensitivity of the testdepends on the timing of the specimen collection and thequality of the specimen. Result should be correlated withpatient's history and clinical presentation. [facility] SARS-CoV-2 Comment August 02, 2020 11:00am See comment PKELM- This test uses the Temnos New CoronavirusNu cleic Acid Detection Kit (Temnos, Inc.), and isperformed on the Camperoo instrument and RentJiffy 7500 Fast Real-Time PCR System. It has receivedEmerg ency Use Authorization (EUA) by the U.S. Food and DrugAdministr ation, and is modified from the shovel oiler' sinstructions with a bridging study. Performancech aracteristics were verified by [facility] in a mannerconsist ent with CLIA requirements. Fact sheets for this Emergency Use Authorization (EUA) canbe found at the following links:https:/ /www.fda.gov/ media/022302/ download for HealthcarePro vidershttps:/ /www.fda.gov/ media/378633/ download for PatientsTest Performed by:[address] [address]Bgi Director: Marco Enciso M.D. Ph.D.; CLIA# [id number] [facility] Advance Directives Advance Directive Response Recorded Date/ Time Does patient have an Advanced Directive? No March 07, 2020 3:24pm Do we have a copy on file here at [facility]? No March 07, 2020 3:24pm Pt has a Living Will? No March 07, 2020 3:24pm Do we have a copy on file here at [facility]? No March 07, 2020 3:24pm Pt has a Power of Java Integration Developer? No March 07, 2020 3:24pm Do we have a copy on file here at [facility]? No March 07, 2020 3:24pm Chief Complaint and Reason for Visit Chief Complaint COVID SWAB COVID SWAB COVID SWAB COVID SWAB COVID SWAB [facility] Covid Vaccine 1st Dose Encounters Encounter Location(s) Arrival/Admit Date Discharge/Depart Date Provider(s) Departed [facility] March 11, 2020 7:10am March 11, 2020 7:11am Joel Cantu DMD Departed [facility] April 08, 2020 7:15am April 08, 2020 7:20am Joel Cantu DMD Departed [facility] May 13, 2020 7:50am May 13, 2020 7:51am Joel [facility] DMD [facility] June 12, 2020 6:53am June 12, 2020 6:54am Joel Cantu DMD Departed [facility] July 15, 2020 6:49am July 15, 2020 6:50am Joel Cantu DMD [facility] August 02, 2020 8:33am August 02, 2020 8:34am Joel Cantu DMD [facility] August 26, 2020 10:43am August 26, 2020 10:44am Joel Cantu DMD Departed Physician/Prov ider Office Visit [facility] Covid Vaccine Clinic September 10, 2020 6:55am September 10, 2020 8:13am Ollie Oliver MD Assessments No Assessments Information Available Functional Status No Functional Status information available Goals Goals may be documented in an alternate section. Immunizations Immunization Event Date Not Given Reason Dose Number Technical Sales Specialist Lot Number Vaccine Information Statement (VIS) Detail Covid-19 30mcg/0.3ml Pfizer September 10, 2020 [id number] Mental Status No Mental Status Information Available Medical Equipment No Medical Equipment Information available Insurance Providers Guarantor KINGSLEY MEL Address [facility] [address] [facility] [address] Contact Info. Home Phone: Payer Policy Id Coverage Id Subscriber's Name Subscriber Id Effective Date Expiration Date BLUE CROSS OUT OF [facility] [id number] AVERY [place] [id number] [facility] [id number] KINGSLEY LEAL [id number] SELF PAY Self N/A Social History Assigned Sex Female
--- OUTSIDE RECORDS SUMMARY | 2023-10-26 11:13 | XMS_ITS | Continuity of Care Document ---
Author Name Unknown Address [address] [place] [address] Phone Organization [facility] Address [address] [place] [address] Phone Care Team Providers Care Alemite Operator Name Role Phone Out of Town, [...] must becombined with clinical observations, patient history, andepidemiologic al information.This test was developed and its performance characteristicsd etermined by [facility]. It has not been cleared or approved bythe US Food and Drug Administration. FDA does not requirethis test to go through premarket FDA review. This test isused for clinical purposes. It should not be regarded asinvestigationa l or for research. This laboratory iscertified under the Clinical Laboratory ImprovementAmend ments (CLIA) as qualified to perform high complexityclinic al laboratory testing.This test is based on the CDC COVID-19 Emergency UseAuthorization (EUA) assay, with minor modification asdefined by the FDAPerformed on the Applied SLM Technologies 7500 Fast. [facility] Reference Lab Test Performing Site March 11, 2020 8:15am Ab [address] [facility] lab Is Patient Admitted or Awaiting Admission?:NOCOV ID Source: NPTest performed or referred byThe [address] Advance Directives Advance Directive Response Recorded Date/ Time Does patient have an Advanced Directive? No March 07, 2020 4:24pm Do we have a copy on file here at [facility]? No March 07, 2020 4:24pm Pt has a Living Will? No March 07, 2020 4:24pm Do we have a copy on file here at [facility]? No March 07, 2020 4:24pm Pt has a Power of University Tutor? No March 07, 2020 4:24pm Do we have a copy on file here at [facility]? No March 07, 2020 4:24pm Chief Complaint and Reason for Visit Chief Complaint COVID SWAB COVID SWAB Encounters Encounter Location(s) Arrival/Admit Date Discharge/Depart Date Provider(s) Departed Clinical [facility] March 11, 2020 8:10am March 11, 2020 8:11am Joel Cantu DMD Departed Clinical [facility] May 13, 2020 8:50am May 13, 2020 8:51am Joel Cantu DMD Assessments No Assessments Information Available Functional Status No Functional Status information available Goals Goals may be documented in an alternate section. Mental Status No Mental Status Information Available Medical Equipment No Medical Equipment Information available Insurance Providers Guarantor KINGSLEY LEAL Address [address] [address] Contact Info. Home Phone: Payer Policy Id Coverage Id Subscriber's Name Subscriber Id Effective Date Expiration Date [facility] [id number] [place] [id number] SELF PAY Self N/A Social History Assigned Sex Female
--- OUTSIDE RECORDS SUMMARY | 2023-10-26 11:13 | XMS_ITS | Continuity of Care Document ---
Author Name [facility] Address [address] [place] [address] Organization [facility] Address [address] [place] [address] Care Team Providers Care Dive Supervisor Name Role Phone Out of Town, Provider Primary Care Physician Joel Lott Attending Physician [phone] Allergies, Adverse Reactions, Alerts No allergy information [...] by the FDA Performed on the Applied Matchbook Fast. Coronavirus (COVID-19)(PCR) May 13, 2020 9:00am Negative 2019-novel Coronavirus (2019-nCoV) not [...] in accordance with CLIA regulations, College of [employer] Pathologists (CAP) guidelines (Dec 06, 2019), and FDA guidance (Nov 17, 2019). This test is only for use under the Food and Drug Administration's Emergency Use Authorization. Reference Lab Test Performing Site May 13, 2020 9:00am [facility] [employer] COVID Source: POT FILLER Please indicate the Triage Tier2 Test performed or referred by The [address] [address] Advance Directives Advance Directive Response Recorded Date/ Time Do we have a copy on file here at [facility]? No March 07, 2020 4:24pm Does patient have an Advanced Directive? No March 07, 2020 4:24pm Pt has a Living Will? No March 07 4:24pm Pt has a Power of Web Content Director? No March 07, 2020 4:24pm Chief Complaint and Reason for Visit Encounter Admit Date Chief Complaint Reason for V isit Departed Clinical June 12, 2020 7:53am COVID SWAB Hospital Discharge Instructions No known hospital discharge instructions. Encounters Encounter Facility Location Admit/Visit Date Discharge/Departure Date Attending Provider Departed [facility] Curbside June 12, 2020 7:53am June 12, 2020 7:54am Joel Cantu Departed [facility] Laboratory May 13, 2020 8:50am May 13, 2020 8:51am [facility] March 11, 2020 8:10am March 11, 2020 8:11am Joel Cantu Functional Status No known functional status. Immunizations No known immunizations. Payers Payer Name Policy Type Covered Libertarian Covered Libertarian Id Relationship Subscriber Subscriber Id BLUE CROSS OUT OF STATE Commercial AVERY [place] [id number] Spouse AVERY [place] [id number] SELF PAY Personal Plan of Care No Known Plan of Care Information Social History No known social history. Vital Signs No known vital signs results.
--- OUTSIDE RECORDS SUMMARY | 2023-10-26 11:13 | XMS_ITS | Continuity of Care Document ---
Author Name [facility] Address [address] [place] [address] Organization [facility] Address [address] [place] [address] Care Team Providers Care Lunch Truck Operator Name Role Phone Out of Town, [...] developed and its performance characteristics determined by [facility]. It has not been cleared or [...] by the FDA Performed on the Applied ProteoGenix Fast. Reference Lab Test Performing Site March 11, 2020 8:15am Pretty in my Pocket (PRIMP) [facility] Is Patient Admitted or Awaiting Admission?:NO COVID Source: AUTOMATIC GRINDER OPERATOR Test performed or referred by The [address] [address] Advance Directives Advance Directive Response Recorded Date/ Time Do we have a copy on file here at [facility]? No March 07, 2020 4:24pm Does patient have an Advanced Directive? No March 07, 2020 4:24pm Pt has a Living Will? No March 07 4:24pm Pt has a Power of Family Educator? No March 07, 2020 4:24pm Chief Complaint and Reason for Visit Encounter Admit Date Chief Complaint Reason for V isit Departed Clinical March 11, 2020 8:10am [facility] Hospital Discharge Instructions No known hospital discharge instructions. Encounters Encounter Facility Location Admit/Visit Date Discharge/Departure Date Attending Provider Departed Clinical [facility] March 11, 2020 8:10am March 11, 2020 8:11am Joel Cantu Functional Status No known functional status. Immunizations No known immunizations. Payers Payer Name Policy Type Covered Green Party Covered Green Party Id Relationship Subscriber Subscriber Id [id number] OUT OF STATE Commercial AVERY QUINTANA [id number] Spouse AVERY QUINTANA [id number] SELF PAY Personal Plan of Care No Known Plan of Care Information Social History No known social history. Vital Signs No known vital signs results.
--- OUTSIDE RECORDS SUMMARY | 2023-10-26 11:13 | XMS_ITS | Continuity of Care Document ---
Author Name [facility] Address [address] [place] [id number] Organization [facility] Address [address] [place] [address] Care Team Providers Care Ply Splicer Name Role Phone Out of Town, Provider Primary Care Physician Joel Lott Attending Physician Allergies, Adverse Reactions, Alerts No known allergies. Medications Discontinued Medications Medication Dose Units Route Sig Qty Start Date Di scontinued Date Status COVID-19 vacc,mRNA(Pfi zer)(PF) 30 mcg/0.3 mL IM susp (EUA) 0.3 ML INTRAMUSCULAR ONCE 0.3 September 10, 2020 September 10, 2020 Discontinued COVID-19 vacc,mRNA(Pfi zer)(PF) 30 mcg/0.3 mL IM susp (EUA) 0.3 ML INTRAMUSCULAR ONCE 0.3 October 01, 2020 October 01, 2020 Discontinued Problem List No problem information available. Procedures No known history of procedures. Relevant Diagnostic Tests and/or Laboratory Data Laboratory Results Test Date/Time Result Interp. Ref. Range Result Co mment SARS-CoV-2 RNA (RT-PCR) November 25, 2020 9:00am Negative This test is onl y for use under the Food and Drug Administration's (FDA) Emergency Use Authorization (EUA). This test has not been FDA cleared or approved. Not for screening. Nasal swabs are considered an acceptable sample type, however performance with this type has not been established. Negative results do not preclude infection and should not be used as the sole basis of treatment or other patient management decisions. Negative results must be combined with clinical observations, patient history, and/or epidemiological information. Fact sheets for providers can be found at: fda.gov/media/461021 /download Fact sheets for patients can be found at: fda.gov/media/046218 /download Coronavirus 2019 PCR Interp October 17, 2020 4:00pm Negative This test has no t been FDA cleared or approved. This test has been authorized by FDA under an EUA for use by authorized laboratories. This test has been authorized only for detection of nucleic acid from 2019-nCoV, not for any other viruses or pathogens. This test is only authorized for the duration of the declaration that circumstances exist justifying the authorization of emergency use of in vitro diagnostic tests for detection and/or diagnosis of 2019-nCoV under section 564(b)(1) of Act, 21 U.S.C ? 360bbb-3(b) (1), unless the authorization is terminated or revoked sooner. Negative results do not preclude 2019-nCoV infection and should not be used as the sole basis for treatment or other patient management decisions. Negative results must be combined with clinical observations, patient history, and epidemiological information. Performed on the XanEdu Fusion instrument Coronavirus (COVID-19)(PCR) July 15, 2020 9:00am Negative Reference Lab Test Performing Site October 17, 2020 4:00pm [facility] lab COVID Source: NASAL Please indicate the Triage Tiert2 Test performed [place] [address] SARS Source August 02, 2020 11:00am Nasopharynx [...] See comment PKELM- This test uses the Expert New Coronavirus Nucleic Acid Detection Kit ([employer]pert[employer] Inc[employer] and is performed on the Invup instrument and Applied mycujoo 7500 Fast Real-Time PCR System. It has received Emergency Use Authorization (EUA) by the U.S. Food and Drug Administration, and is modified from the green building energy engineer's instructions with a bridging study. Performance characteristics were verified by [facility] in a manner consistent with CLIA requirements. Fact sheets for this Emergency Use Authorization (EUA) can be found at the following links: https://www.fda.gov/ media/139518/downloa d for Healthcare Providers https://www.fda.gov/ media/944097/downloa d for Patients Test Performed by: [facility] [address] [place] [address] Stage Hand: Marco Enciso M.D. Ph.D.; CLIA# [id number] Advance Directives Advance Directive Response Recorded Date/ Time Do we have a copy on file here at [facility]? No March 07, 2020 4:24pm Does patient have an Advanced Directive? No March 07, 2020 4:24pm Pt has a Living Will? No March 07 4:24pm Pt has a Power of Engineering Writer? No March 07, 2020 4:24pm Chief Complaint and Reason for Visit Encounter Admit Date Chief Complaint Reason for V isit Departed Clinical November 25, 2020 8:55am Contact w ith and (suspected) exposure to COVID-19 Hospital Discharge Instructions No known hospital discharge instructions. Hospital Discharge Medications Medication Dose Units Route Sig Qty Days Order Date Status Instructions COVID-19 vacc,mRNA(P fizer)(PF) 30 mcg/0.3 mL IM susp (EUA) 0.3 ML INTRAMUSCULAR ONCE 0.3 Decemb er 2019 Discontinued COVID-19 vacc,mRNA(P fizer)(PF) 30 mcg/0.3 mL IM susp (EUA) 0.3 ML INTRAMUSCULAR ONCE 0.3 Januar y 2020 Discontinued Encounters Encounter Facility Location Admit/Visit Date Discharge/Departure Date Attending Provider Departed [facility] November 25, 2020 8:55am November 25, 2020 8:56am Joel Cantu Departed [facility] October 17, 2020 7:51am October 17, 2020 7:52am Joel Cantu Departed Physician/Pr ovider Office Visit [facility] October 01, 2020 6:57am October 01, 2020 7:18am Ollie Olievr Departed [facility] September 23, 2020 8:01am September 23, 2020 8:02am Joel Cantu Departed Physician/Pr ovider Office Visit [facility] September 10, 2020 6:55am September 10, 2020 8:13am Ollie Oliver Departed [facility] August 26, 2020 10:43am August 26, 2020 10:44am [facility], 2020 8:33am August 02, 2020 8:34am Joel Cantu Departed [facility] July 15, 2020 7:49am July 15, 2020 7:50am [facility] June 12, 2020 7:53am June 12, 2020 7:54am Joel Cantu Departed [facility] May 13, 2020 8:50am May 13, 2020 8:51am [facility] April 08, 2020 8:15am April 08, 2020 8:20am [facility] March 11, 2020 8:10am March 11, 2020 8:11am Joel Cantu Functional Status No known functional status. Immunizations Immunization Name Date Given Type Covid-19 30mcg/0.3ml Pfizer September 10, 2020 Ad ministered Covid-19 30mcg/0.3ml Pfizer October 01, 2020 Adm inistered Plan of Care No Known Plan of Care Information Social History No known social history. Vital Signs No known vital signs results.
--- OUTSIDE RECORDS SUMMARY | 2023-10-26 11:13 | XMS_ITS | Continuity of Care Document ---
Author Name [facility] Address [address] [place] [address] Organization [facility] Address [address] [place] [address] Care Team Providers Care Sales Team Leader Name Role Phone Out of Town, Provider Primary Care Physician Joel Lott Attending Physician [phone] Allergies, Adverse Reactions, Alerts No allergy information [...] developed and its performance characteristics determined by [facility]. It has not been cleared or approved [...] by the FDA Performed on the Applied [employer] Fast. Coronavirus (COVID-19)(PCR) June 12, 2020 9:00am [...] in accordance with CLIA regulations, [employer] (CAP) guidelines (Dec 06, 2019), and FDA guidance (Nov 17, 2019). This test is only for use under the Food and Drug Administration's Emergency Use Authorization. Reference Lab Test Performing Site June 12, 2020 9:00am [facility] COVID Source: TARIFF PUBLISHING AGENT Please indicate the Triage TierTier 2 Test performed or referred by The [address] [address] Advance Directives Advance Directive Response Recorded Date/ Time Do we have a copy on file here at [facility]? No March 07, 2020 4:24pm Does patient have an Advanced Directive? No March 07, 2020 4:24pm Pt has a Living Will? No March 07 4:24pm Pt has a Power of Making Department Preparer? No March 07, 2020 4:24pm Chief Complaint and Reason for Visit Encounter Admit Date Chief Complaint Reason for V isit Departed Clinical April 08, 2020 8:15am COVID [facility] Hospital Discharge Instructions No known hospital discharge instructions. Encounters Encounter Facility Location Admit/Visit Date Discharge/Departure Date [facility] July 15, 2020 7:50am [facility] June 12, 2020 7:53am June 12, 2020 7:54am [facility], [facility] 8:50am May 13, 2020 8:51am [facility] April 08, 2020 8:15am April 08, 2020 8:20am Joel Cantu [facility] March 11, 2020 8:10am March 11, 2020 8:11am Joel Cantu Functional Status No known functional status. Immunizations No known immunizations. Plan of Care No Known Plan of Care Information Social History No known social history. Vital Signs No known vital signs results.
== END 2023-10-25 11:10 | disposition home or self-care (01) ==
LOC: NCHCN 11:09
PROVIDERS: PCP Family Medicine; Visit Provider Family Medicine
DX: Z00.00 Encounter for general adult medical examination without abnormal findings (principal)
CPT/HCPCS: 88304; 88305

== ENCOUNTER 2024-10-18 18:00 | Outpatient (REF) | payer MEDICARE, SELFPAY ==
[2024-10-18 15:57] LABS: ALT 30 U/L (14-59); Albumin 4.2 g/dL (3.4-5.0); Alkaline Phosphatase 78 U/L (46-116); Bilirubin, Total 0.43 mg/dL (0.2-1.0); Calculated LDL 135 mg/dL (<100); Cholesterol 224 mg/dL (<200); HDL Cholesterol 80 mg/dL (40-60); Triglyceride 49 mg/dL (<150)
[2024-10-18 16:11] LABS: AST 19 U/L (15-37); Bilirubin, Direct 0.1 mg/dL (0.0-0.2)
== END 2024-10-18 18:01 | disposition home or self-care (01) ==
LOC: NCHCN 18:00
PROVIDERS: PCP Family Medicine; Visit Provider Family Medicine
DX: E78.5 Hyperlipidemia, unspecified (principal)
CPT/HCPCS: 80061; 80076